=== PATIENT | male | born 1960 | race Caucasian/White ===

== ENCOUNTER 2016-07-27 13:15 | Inpatient (IN) | payer OTHER ==
[~2016-07-27] VITALS: Ht 162.6 cm; Wt 61.4 kg
[2016-07-27] VITALS (7 sets, daily range): BP systolic 111–144; BP diastolic 56–70
[~2016-07-27 13:15] MED LIST: NAPROSYN500 MG OR; NAPROSYN500 MG PO; OMEPRAZOLE40 MG PO; PHENERGAN25 MG/TAB PO; PRILOSEC20 MG OR; PRILOSEC40 MG PO; PROAIR HFA IN; SYMBICORT 160-4.5MCG; SYMBICORT 160-4.5MCG IN; SYMBICORT1 AE1 IN; TESSALON PER100 MG PO; TOPROL XL25 M1 OR; ZITHROMAX250 MG PO; ZITHROMAX500 MG OR
--- NOTE | 2016-07-27 13:26 | NUR ---
IMMEDIATELY TO ER ROOM 10 UPON ARRIVAL. EKG AND DR MAKI SUMMONED TO BEDSIDE
[2016-07-27 13:40] LABS: HEMATOCRIT 51.6 % (39.0-50.0); HEMOGLOBIN 17.5 g/dl (14.0-18.0); IMMATURE GRANULOCYTES 0.5 % (0.0-1.0); MEAN CELL VOLUME 93.5 fL CALC (80.0-100.0); MEAN CORPUSCULAR HGB 31.7 pG CALC (26.0-32.0); MEAN CORPUSCULAR HGB CONC 33.9 g/L CALC (32.0-36.0); NEUT# 9.18 thou/uL (1.82-7.42); RED BLOOD COUNT 5.52 mill/uL (4.70-6.10); RED CELL DISTRI WIDTH 13.3 % (11.5-15.5)
--- NOTE | 2016-07-27 13:43 | NUR ---
DIGOXIN 0.25MG IVP GIEN WITH BP 144/90 AND HR 157.
--- NOTE | 2016-07-27 14:05 | NUR ---
FIRST LITER NS COMPLETE.
--- NOTE | 2016-07-27 14:07 | NUR ---
PT SITTING UP ON STRETCHER. PT STATES HE "FEELS ALOT BETTER". HR DOWN TO 120S. SAO2 =95% ON 2L NC. CRIMINAL JUSTICE INSTRUCTOR SHOWING AFIB. BP 132/82. RR38. CONTINUING TO MONITOR PT.
--- NOTE | 2016-07-27 14:44 | NUR ---
PT RESTING ON STRETCHER. RESP EVEN AND UNLABORED. SAO2 97% ON 2L NC. HR DOWN TO 90-100S. AFIB ON PURCHASING ADMINISTRATIVE ASSISTANT. RR DOWN TO 22. BOTH IV SITES HEALTHY. CARDIAZEM GTT INFUSING AT 15MG/HR. CONTINUING TO MONITOR PT.
[2016-07-27] MEDS ORDERED: LISINOPRIL10 MG PO (15:24)
[2016-07-27] MEDS ORDERED: OMEPRAZOLE10 MG PO (15:26)
[2016-07-27] MEDS ORDERED: SYMBICORT1 AE1 IN (15:26)
[2016-07-27] MEDS ORDERED: PROAIR HFA108 MCG/AC IN (15:30)
[2016-07-27 15:35] LABS: ALBUMIN 4.9 g/dL (3.2-5.0); ALKALINE PHOSPHATASE 114 u/l (38-126); ANION GAP 18 (6-22 (CALC)); BILIRUBIN, TOTAL 0.8 mg/dL (0.0-1.4); BUN 10 mg/dL (9-20); BUN/CREATININE RATIO 9 (12-20 (CALC)); CALCIUM 9.8 mg/dL (8.4-10.2); CARBON DIOXIDE 28 mmol/l (22-30); CHLORIDE 98 mmol/l (95-108); CREATININE 1.2 mg/dL (0.7-1.3); GFR > 60 ML/MIN (>=60 (CALC)); GFR FOR AFR.AMER. > 60 ML/MIN (>=60 (CALC)); GLUCOSE 104 mg/dL (75-110); POTASSIUM 4.7 mmol/l (3.5-5.1); SGOT/AST 38 u/l (17-59); SGPT/ALT 21 u/l (21-72); SODIUM 139 mmol/l (137-146); TOTAL PROTEIN 8.7 g/dL (6.3-8.2)
--- NOTE | 2016-07-27 15:43 | NUR ---
PT RESTING ON STRETCHER. RESP EVEN AND UNLABORED. SAO2 =95% ON 2L NC. SKIN WARM AND DRY. TEMP DOWN TO 99.8. PT A&O X3. HR 90S-100S. AFIB ON SUTURE WINDER HAND. CARDIAZEM INFUSING AT 15MG/HR. BOTH IV SITES HEALTHY. CONTINUING TO MONITOR PT.
[2016-07-27 15:47] LABS: MYOGLOBIN 76 ng/mL (0 - 121)
--- NOTE | 2016-07-27 16:47 | NUR ---
REPORT GIVEN TO BERTRAND TELLEZ
--- NOTE | 2016-07-27 17:00 | NUR ---
600 ML OF URINE OUTPUT IN URINAL
--- NOTE | 2016-07-27 17:30 | NUR ---
PT ADMITTED TO ICU VIA STRETCHER FROM E.R. PT STANDS AND TRANSFERS FROM STRETCHER INTO BED, STOOD AT BEDSIDE REMOVING CLOTHING WITH FAIRLY STEADY GAIT, PT INTO BED AND WEIGHT OBTAINED, PT VERY RED CLIFF, ADMISSION ASSESSMENT COMPLETED, SEE INTERVENTIONS, SKIN WARM DRY AND ITNACT, POST TIB PULSES WITH DOPPLER, BILATERAL FEET WARM WITH GOOD CAP REFILL, CARDIZEM GTT DISCONTINUED IN ER RELATED TO HR 60'S, TELE READING SR WITH PAC'S IN THE 60'S, BP STABLE, PT AFEBRILE, PT HAS IV ACCESS IN 20G R AC AND 18G LEFT AC, NS INFUSING AT KVO IN LEFT AC SITE, LUNGS DIMINSHED AND TIGHT WITH EXPIRATORY WHEEZES, MORE DIMINSHED ON RIGHT ORIENTED TO ROOM AND UNIT, ALL MONITORING EQUIPMENT EXPLAINED PRIOR TO APPLICATION, SAFETY MEASURES INTRODUCED, CALL VELEZ WITHIN REACH, WILL CONTINUE TO MONITOR.
--- NOTE | 2016-07-27 17:30 | NUR ---
Admission Note Report Given to: BERTRAND RN/ROSETTE RN Transported by: Wheelchair X Stretcher Transported with: X Nurse Transporter X Patent IV X O2 X Rn Clinical HR DOWN TO 60S. CARDIAZEM STOPPED. BOTH IV SITES HEALTHY. BELONGINGS UP WITH PT. PT IN STABLE CONDITION.
--- NOTE | 2016-07-27 17:57 | NUR ---
BILATERAL KNEE HI CHER HOSE AND NON SKID SOCKS APPLIED, COMFORT MEASURES PROVIDED, CALL VELEZ WITHIN REACH, WILL CONTINUE TO MONITOR
--- NOTE | 2016-07-27 19:00 | NUR ---
REPORT FROM ROSALINDA DINERO. ASSUMED PT. CARE.
--- NOTE | 2016-07-27 19:30 | NUR ---
PT. RESTING IN BED IN NO DISTRESS. DIMINISHED LUNG SOUNDS THROUGHOUT WITH EXPIRATORY WHEEZES NOTED TO THE UPPERS. VSS. PT. IN NSR WITH RATE IN 60-70'S AT THIS TIME. PT. AWAKE, ALERT, ORIENTED X 3. SKIN WARM AND DRY. AFEBRILE.
--- NOTE | 2016-07-27 19:30 | NUR ---
PT. WASHING UP AT THIS TIME AND ASSISTED BACK TO BED. WITH EXERTION, AND NO OXYGEN, PT. SPO2 DECREASES FROM 96-98% TO 83-85% WITH MILD CASTRO. PT. DENIES COMPLAINTS OF PAIN OR NEED AT THIS TIME. BP STABLE. PLACED BACK ON MONITOR AND REMAINS IN SINUS RHYTHM IN THE 80'S.
--- NOTE | 2016-07-27 21:05 | NUR ---
PT. RESTING IN BED IN NO DISTRESS. RESPS EVEN, SHALLOW, UNLABORED. O2 REMAINS IN PLACE VIA NC AT RATE OF 2L. SPO2 IS 96-98% ON NC. PT. UPDATED ON PLAN OF CARE AND UPCOMING MED ADMINISTRATION. WILL CONTINUE TO REASSESS.
--- NOTE | 2016-07-27 23:00 | NUR ---
PT. RESTING IN BED WITH EYES CLOSED. PT. VOICES NO CONCERNS OR COMPLAINTS AT THIS TIME. VSS. PT. REMAINS IN SINUS RHYTHM IN NO DISTRESS. RESPS EVEN AND UNLABORED. CALL LIGHT WITHIN REACH.
[2016-07-28] VITALS (9 sets, daily range): BP systolic 108–151; BP diastolic 61–78
--- NOTE | 2016-07-28 00:15 | NUR ---
LAB AT BEDSIDE TO DRAW PT. AT THIS TIME. AROUSABLE TO LIGHT VERBAL STIMULI. REMAINS AFEBRILE. DENIES COMPLAINTS OR NEED. WILL CONTINUE TO MONITOR.
--- NOTE | 2016-07-28 02:32 | NUR ---
PT. RESTING IN BED WITH EYES CLOSED. VOICES NO COMPLAINTS OR CONCERNS. PT. REMAINS SINSU SELENE TO SINUS RHYTHM. RESPS EVEN AND UNLABORED. REMAINS AFEBRILE. CALL LIGHT WITHIN REACH.
--- NOTE | 2016-07-28 04:15 | NUR ---
LAB AT BEDSIDE AT THIS TIME. PT. DENIES COMPLAINTS OR NEEDS. APPROX 800 CC CLEAR URINE OUT AT THIS TIME. RESPS REMAINS EVEN, SHALLOW AND UNLABORED. SPO2 STABLE AT 96-97% ON 2L NC. AROUSABLE TO LIGHT VERBAL STIMULI. SKIN WARM AND DRY. AFEBRILE. CALL LIGHT WITHIN REACH.
--- NOTE | 2016-07-28 06:10 | NUR ---
LAB BACK AT BEDSIDE AT THIS TIME FOR REPEAT TROPONIN. PT. STATES HIS WORK OF BREATHING IS MUCH IMPROVED. REMAINS ON 2L NC WITH SPO2 OF 96% AT THIS TIME. REMAINS AFEBRILE. PT. STATES HE FEELS LIKE HE CAN GO HOME NOW.
[2016-07-28 06:22] LABS: HEMATOCRIT 42.3 % (39.0-50.0); HEMOGLOBIN 14.2 g/dl (14.0-18.0); IMMATURE GRANULOCYTES 0.5 % (0.0-1.0); MEAN CELL VOLUME 93.6 fL CALC (80.0-100.0); MEAN CORPUSCULAR HGB 31.4 pG CALC (26.0-32.0); MEAN CORPUSCULAR HGB CONC 33.6 g/L CALC (32.0-36.0); NEUT# 9.74 thou/uL (1.82-7.42); RED BLOOD COUNT 4.52 mill/uL (4.70-6.10); RED CELL DISTRI WIDTH 13.4 % (11.5-15.5)
[2016-07-28 06:42] LABS: ANION GAP 14 (6-22 (CALC)); BUN 16 mg/dL (9-20); BUN/CREATININE RATIO 17 (12-20 (CALC)); CALCIUM 8.9 mg/dL (8.4-10.2); CALCULATED LDLCHOLESTEROL 77 mg/dL (62-129 (CALC)); CARBON DIOXIDE 22 mmol/l (22-30); CHLORIDE 106 mmol/l (95-108); CREATININE 0.9 mg/dL (0.7-1.3); GFR > 60 ML/MIN (>=60 (CALC)); GFR FOR AFR.AMER. > 60 ML/MIN (>=60 (CALC)); GLUCOSE 139 mg/dL (75-110); HDL CHOLESTEROL 38 mg/dL (>=40); SODIUM 138 mmol/l (137-146); TOTAL CHOLESTEROL 124 mg/dl (0-199); TOTAL TRIGLYCERIDES 43 mg/dl (30-149); VLDL CHOLESTROL 9 mg/dl (8-62 (CALC))
--- NOTE | 2016-07-28 08:18 | NUR ---
PATIENT SITTING UP IN BED WATCHING TV AND EATING BREAKFAST. ASSESSMENT COMPLETED AT THIS TIME. RESP EVEN AND UNLABORED. NO S/S OF DISTRESS NOTED. CALL LIGHT IN REACH. ENCOURAGED TO CALL FOR ANY NEEDS.
--- NOTE | 2016-07-28 12:49 | NUR ---
PATIENT IN BED WATCHING TV. RESP EVEN AND UNLABORED. NO S/S OF DISTRESS NOTED. CALL LIGHT IN REACH. ENCOURAGED TO CALL FOR ANY NEEDS. WILL CONTINUE TO MONITOR.
--- NOTE | 2016-07-28 14:00 | NUR ---
FROM ICU VIA WHEELCHAIR ACCOMPANIED BY YAMILKA TRAN. AMBULATED TO BATHROOM WITH UNSTEADY GAIT. RESPS LABORED ON EXERTION, O2 VIA NC. TELE MONITOR APPLIED. ORIENTED TO ROOM AND CALL SYSTEM. SAFETY PRECAUTIONS REINFORCED. BED IN LOWEST POSITION WITH WHEELS LOCKED. CALL LIGHT WITHIN REACH. WILL CONTINUE TO MONITOR.
--- NOTE | 2016-07-28 16:00 | NUR ---
SITTING IN BEDSIDE CHAIR. DENIES ANY NEEDS AT THIS TIME. CALL LIGHT WITHIN REACH. WILL CONTINUE TO MONITOR.
--- NOTE | 2016-07-29 00:13 | NUR ---
PT IS ASLEEP AT THIS TIME. NO SIGNS OF PAIN/DISCOMFORT NOTED. RESPIRATIONS EVEN AND UNLABORED WITH OXYGEN IN PLACE. SAFETY MEASURES IN PLACE. CALL LIGHT WITHIN REACH.
--- NOTE | 2016-07-29 03:56 | NUR ---
PT ASLEEP AT THIS TIME. NO SIGNS OF PAIN OR DISCOMFORT. RESPIRATIONS EVEN AND SHALLOW. SAFETY MEASURES IN PLACE. CALL LIGHT WITHIN REACH.
[2016-07-29 04:07] VITALS: BP 106/67
[2016-07-29 06:23] LABS: HEMATOCRIT 41.7 % (39.0-50.0); IMMATURE GRANULOCYTES 0.9 % (0.0-1.0); MEAN CELL VOLUME 94.6 fL CALC (80.0-100.0); MEAN CORPUSCULAR HGB 31.7 pG CALC (26.0-32.0); MEAN CORPUSCULAR HGB CONC 33.6 g/L CALC (32.0-36.0); NEUT# 14.42 thou/uL (1.82-7.42); RED BLOOD COUNT 4.41 mill/uL (4.70-6.10); RED CELL DISTRI WIDTH 13.5 % (11.5-15.5)
[2016-07-29 06:31] LABS: ANION GAP 14 (6-22 (CALC)); BUN 19 mg/dL (9-20); BUN/CREATININE RATIO 20 (12-20 (CALC)); CALCIUM 9.4 mg/dL (8.4-10.2); CARBON DIOXIDE 24 mmol/l (22-30); CHLORIDE 103 mmol/l (95-108); GFR > 60 ML/MIN (>=60 (CALC)); GFR FOR AFR.AMER. > 60 ML/MIN (>=60 (CALC)); GLUCOSE 141 mg/dL (75-110); POTASSIUM 4.2 mmol/l (3.5-5.1); SODIUM 137 mmol/l (137-146)
--- NOTE | 2016-07-29 07:00 | NUR ---
RECEIVED BEDSIDE REPORT FROM CINDI TRAN. RESTING IN BED WITH EYES CLOSED, AWAKENS EASILY. RESPS EVEN AND UNLABORED ON O2 VIA NC, TELE MONITOR IN PLACE. DENIES PAIN OR DISCOMFORT. PLAN OF CARE DISCUSSED. SAFETY PRECAUTIONS REINFORCED. BED IN LOWEST POSITION WITH WHEELS LOCKED. CALL LIGHT WITHIN REACH. ENCOURAGED PT TO CALL FOR ANY NEEDS.
[2016-07-29 08:26] VITALS: BP 120/67
[2016-07-29 11:17] VITALS: BP 125/59
[2016-07-29] MEDS ORDERED: NICOTINE T21 MG/PATC TD (11:42)
[2016-07-29] MEDS ORDERED: IPRATROPIU0.5 MG/3 M IN (11:42)
[2016-07-29] MEDS ORDERED: XARELTO10 MG PO (11:42)
[2016-07-29] MEDS ORDERED: CARDIZEM CD120 M1 PO (11:42)
[2016-07-29] MEDS ORDERED: PREDNISONE20 MG PO (11:44)
[2016-07-29] MEDS ORDERED: LEVAQUIN750 MG PO (14:04)
[2016-07-29] MEDS ORDERED: LISINOPRIL10 MG PO (14:09)
--- NOTE | 2016-07-29 15:01 | NUR ---
Discharge instructions given. Patient verbalizes understanding of same. Discharged in stable condition via Wheelchair to Home with spouse. All belongings sent with pt.
== END 2016-07-29 15:02 | disposition home or self-care (01) | DRG 189 ==
LOC: ENPENDDIS → ED 13:15 → ED-I 16:10 → ED 16:12 → ICU 16:13 → MS2 07-28 13:57
PROVIDERS: Emergency Medicine; ADMIT Internal Medicine; ATTEND Internal Medicine
PROC: 3E0234Z Introduction of Serum, Toxoid and Vaccine into Muscle, Percutaneous Approach (ICD-10-PCS; principal; 2016-07-29)
DX: J96.01 Acute respiratory failure with hypoxia (principal); I48.92 Unspecified atrial flutter; I10 Essential (primary) hypertension; J44.1 Chronic obstructive pulmonary disease with (acute) exacerbation; I48.91 Unspecified atrial fibrillation; J45.909 Unspecified asthma, uncomplicated; K21.9 Gastro-esophageal reflux disease without esophagitis; F12.90 Cannabis use, unspecified, uncomplicated; F17.210 Nicotine dependence, cigarettes, uncomplicated; H91.90 Unspecified hearing loss, unspecified ear; Z23 Encounter for immunization
CPT/HCPCS: J0282; J1160; J1650

== ENCOUNTER 2016-11-12 10:14 | Emergency (ER) | payer OTHER ==
[~2016-11-12] VITALS: Ht 162.6 cm; Wt 70.0 kg
[~2016-11-12 10:14] MED LIST changes: +CARDIZEM CD120 M1 PO; +IPRATROPIU0.5 MG/3 M IN; +LEVAQUIN750 MG PO; +LISINOPRIL10 MG PO; +NICOTINE T21 MG/PATC TD; +OMEPRAZOLE10 MG PO; +PREDNISONE20 MG PO; +PROAIR HFA108 MCG/AC IN; +XARELTO10 MG PO
[2016-11-12] MEDS ORDERED: DILTIAZEM240 MG PO (10:52)
[2016-11-12] MEDS ORDERED: CARVEDILOL3.125 MG PO (10:52)
[2016-11-12] MEDS ORDERED: CILOSTAZOL100 MG PO (10:52)
[2016-11-12 11:34] LABS: HEMATOCRIT 38.1 % (39.0-50.0); IMMATURE GRANULOCYTES 1.3 % (0.0-1.0); MEAN CELL VOLUME 90.5 fL CALC (80.0-100.0); MEAN CORPUSCULAR HGB 30.9 pG CALC (26.0-32.0); MEAN CORPUSCULAR HGB CONC 34.1 g/L CALC (32.0-36.0); NEUT# 5.44 thou/uL (1.82-7.42); RED BLOOD COUNT 4.21 mill/uL (4.70-6.10); RED CELL DISTRI WIDTH 13.7 % (11.5-15.5)
[2016-11-12 11:50] LABS: ALBUMIN 4.1 g/dL (3.2-5.0); ALKALINE PHOSPHATASE 89 u/l (38-126); ANION GAP 15 (6-22 (CALC)); BILIRUBIN, TOTAL 0.3 mg/dL (0.0-1.4); BUN 14 mg/dL (9-20); BUN/CREATININE RATIO 16 (12-20 (CALC)); CALCIUM 8.9 mg/dL (8.4-10.2); CARBON DIOXIDE 22 mmol/l (22-30); CHLORIDE 106 mmol/l (95-108); CREATININE 0.9 mg/dL (0.7-1.3); GFR > 60 ML/MIN (>=60 (CALC)); GFR FOR AFR.AMER. > 60 ML/MIN (>=60 (CALC)); GLUCOSE 97 mg/dL (75-110); POTASSIUM 3.9 mmol/l (3.5-5.1); SGOT/AST 13 u/l (17-59); SGPT/ALT 24 u/l (21-72); SODIUM 139 mmol/l (137-146); TOTAL PROTEIN 6.7 g/dL (6.3-8.2)
[2016-11-12 12:25] VITALS: BP 145/76
== END 2016-11-12 12:42 | disposition home or self-care (01) | DRG 305 ==
LOC: ED 10:14
PROVIDERS: Emergency Medicine
DX: I10 Essential (primary) hypertension (principal)

== ENCOUNTER 2017-03-27 11:50 | Emergency (ER) | payer OTHER ==
[~2017-03-27] VITALS: Ht 162.6 cm; Wt 70.0 kg
[~2017-03-27 11:50] MED LIST changes: +CARVEDILOL3.125 MG PO; +CILOSTAZOL100 MG PO; +DILTIAZEM240 MG PO
[2017-03-27 12:42] LABS: HEMATOCRIT 48.4 % (39.0-50.0); HEMOGLOBIN 16.3 g/dl (14.0-18.0); IMMATURE GRANULOCYTES 1.7 % (0.0-1.0); MEAN CELL VOLUME 88.8 fL CALC (80.0-100.0); MEAN CORPUSCULAR HGB 29.9 pG CALC (26.0-32.0); MEAN CORPUSCULAR HGB CONC 33.7 g/L CALC (32.0-36.0); NEUT# 15.25 thou/uL (1.82-7.42); RED BLOOD COUNT 5.45 mill/uL (4.70-6.10); RED CELL DISTRI WIDTH 13.9 % (11.5-15.5)
[2017-03-27 12:59] LABS: ALBUMIN 5.2 g/dL (3.2-5.0); ALKALINE PHOSPHATASE 155 u/l (38-126); AMYLASE 75 u/l (30-110); ANION GAP 21 (6-22 (CALC)); BILIRUBIN, TOTAL 0.8 mg/dL (0.0-1.4); BUN 16 mg/dL (9-20); BUN/CREATININE RATIO 11 (12-20 (CALC)); CALCIUM 10.4 mg/dL (8.4-10.2); CARBON DIOXIDE 18 mmol/l (22-30); CHLORIDE 111 mmol/l (95-108); CREATININE 1.4 mg/dL (0.7-1.3); GFR 52 ML/MIN (>=60 (CALC)); GFR FOR AFR.AMER. > 60 ML/MIN (>=60 (CALC)); GLUCOSE 154 mg/dL (75-110); LIPASE 59 u/l (23-300); POTASSIUM 4.3 mmol/l (3.5-5.1); SGOT/AST 17 u/l (17-59); SGPT/ALT 16 u/l (21-72); SODIUM 145 mmol/l (137-146); TOTAL PROTEIN 9.2 g/dL (6.3-8.2)
[2017-03-27 13:11] LABS: MYOGLOBIN 109 ng/mL (0 - 121)
[2017-03-27 14:08] LABS: URINE BLOOD DIPSTICK NEGATIVE (NEGATIVE); URINE GLUCOSE - DIPSTICK NEGATIVE (NEGATIVE); URINE LEUK ESTERASE NEGATIVE (NEGATIVE); URINE NITRITE - DIPSTICK NEGATIVE (Negative); URINE UROBILINOGEN - DIPSTICK 0.2 E.U./dL (0.2)
[2017-03-27 14:32] LABS: URINE COLOR DK. YELLOW
[2017-03-27 14:33] LABS: URINE BILIRUBIN - DIPSTICK SMALL (NEGATIVE); URINE CLARITY SL CLOUDY; URINE KETONE TRACE mg/dL (NEGATIVE); URINE PH 5.5 (4.5-8.0); URINE SPECIFIC GRAVITY >=1.030
[2017-03-27 14:34] LABS: URINE EPITHELIAL CELLS MODERATE EPI/hpf (0-FEW); URINE MUCUS MODERATE hpf (NONE-FEW); URINE PROTEIN - DIPSTICK 100 mg/dL (NEG-TRACE)
[2017-03-27] MEDS ORDERED: IMODIUM2 MG PO (15:51)
[2017-03-27] MEDS ORDERED: ZOFRAN ODT4 MG PO (15:51)
[2017-03-27 15:56] VITALS: BP 141/79
== END 2017-03-27 16:00 | disposition home or self-care (01) | DRG 392 ==
LOC: ED 11:50
PROVIDERS: Emergency Medicine
DX: R11.10 Vomiting, unspecified (principal); R19.7 Diarrhea, unspecified; R10.84 Generalized abdominal pain; J98.4 Other disorders of lung; I10 Essential (primary) hypertension; R07.9 Chest pain, unspecified; I51.9 Heart disease, unspecified

== ENCOUNTER 2020-03-04 14:07 | Emergency (ER) | payer OTHER ==
[~2020-03-04] VITALS: Ht 162.6 cm; Wt 75.0 kg
[~2020-03-04 14:07] MED LIST changes: +IMODIUM2 MG PO; +ZOFRAN ODT4 MG PO
[2020-03-04] MEDS ORDERED: LIPITOR20 M1 PO (14:24)
[2020-03-04] MEDS ORDERED: CILOSTAZOL100 MG PO (14:24)
[2020-03-04] MEDS ORDERED: LISINOPRIL5 MG PO (14:25)
[2020-03-04] MEDS ORDERED: XARELTO10 MG PO (14:25)
[2020-03-04] MEDS ORDERED: CARVEDILOL6.25 MG PO (14:25)
[2020-03-04 14:41] LABS: IMMATURE GRANULOCYTES 3.1 % (0.0-5.0); MEAN CORPUSCULAR HGB CONC 30.6 g/dL CAL (32.0-36.0); RED BLOOD COUNT 4.62 mill/uL (4.70-6.10); RED CELL DISTRI WIDTH 18.7 % (11.5-15.5)
[2020-03-04 14:49] LABS: HEMATOCRIT 36.3 % (39.0-50.0); HEMOGLOBIN 11.1 g/dl (14.0-18.0); MEAN CELL VOLUME 78.6 fL CALC (80.0-100.0); PLATELET COUNT 837 thou/uL (130-400)
[2020-03-04 14:59] LABS: ALKALINE PHOSPHATASE 119 u/l (38-126); BILIRUBIN, TOTAL 0.7 mg/dL (0.0-1.4); BUN 21 mg/dL (8-23); BUN/CREATININE RATIO 25 (12-20 (CALC)); CARBON DIOXIDE 21 mmol/l (22-30); CHLORIDE 102 mmol/l (95-108); CREATININE 0.8 mg/dL (0.7-1.3); GFR > 60 ML/MIN (>=60 (CALC)); GFR FOR AFR.AMER. > 60 ML/MIN (>=60 (CALC)); POTASSIUM 4.8 mmol/l (3.5-5.1); SGOT/AST 25 u/l (19-48); TOTAL PROTEIN 7.5 g/dL (6.3-8.2)
[2020-03-04 15:02] LABS: BAND 5 % (0-8); MANUAL DIFFERENTIAL YES
[2020-03-04 15:06] LABS: ALBUMIN 3.1 g/dL (3.2-5.0); ANION GAP 16 (6-22 (CALC)); SODIUM 134 mmol/l (137-146)
[2020-03-04 17:18] LABS: C-REACTIVE PROTEIN > 27.0 mg/dL (0-0.9)
[2020-03-04 18:05] VITALS: BP 111/64
--- NOTE | 2020-03-06 08:46 | NUR ---
PRELIM BLOOD CX SHOW GRAM POSITIVE COCCI IN 1 SET. RESULTS CALLED TO [place] AT [facility] [address] AND FAXED TO [phone]. WILL F/U WITH FINAL
--- NOTE | 2020-03-08 07:45 | NUR ---
FINAL BLOOD CX RESULTS FAXED TO [facility] M[facility] NURSE TAI [phone]
== END 2020-03-04 18:05 | disposition short-term general hospital (02) ==
LOC: ED 14:07
PROVIDERS: Family Medicine
DX: J93.9 Pneumothorax, unspecified (principal); J18.9 Pneumonia, unspecified organism; J91.8 Pleural effusion in other conditions classified elsewhere; J44.0 Chronic obstructive pulmonary disease with (acute) lower respiratory infection; I10 Essential (primary) hypertension; Z99.81 Dependence on supplemental oxygen; Z20.828 Contact with and (suspected) exposure to other viral communicable diseases
CPT/HCPCS: Q9967

== ENCOUNTER 2023-04-11 12:11 | Inpatient (IN) | payer OTHER ==
[~2023-04-11] VITALS: Ht 162.6 cm; Wt 83.8 kg
[~2023-04-11 12:11] MED LIST changes: +CARVEDILOL6.25 MG PO; +LIPITOR20 M1 PO; +LISINOPRIL5 MG PO
[2023-04-11 12:42] LABS: BASO% 0.8 % (0-3); EOS% 1.8 % (0-8); HEMATOCRIT 36.6 % (39.0-50.0); HEMOGLOBIN 11.2 g/dl (14.0-18.0); IMMATURE GRANULOCYTES 0.8 % (0.0-5.0); LYMPH% 20.7 % (15-41); MEAN CELL VOLUME 82.6 fL CALC (80.0-100.0); MEAN CORPUSCULAR HGB 25.3 pG CALC (26.0-32.0); MEAN CORPUSCULAR HGB CONC 30.6 g/dL CAL (32.0-36.0); MONO% 14.5 % (2-13); NEUT# 4.83 thou/uL (1.82-7.42); NEUT% 61.4 % (42-76); RED BLOOD COUNT 4.43 mill/uL (4.70-6.10); RED CELL DISTRI WIDTH 17.5 % (11.5-15.5)
[2023-04-11 13:03] LABS: ALBUMIN 3.6 g/dL (3.2-5.0); ALKALINE PHOSPHATASE 160 u/l (38-126); ANION GAP 13 (6-22 (CALC)); BUN 24 mg/dL (8-23); BUN/CREATININE RATIO 23 (12-20 (CALC)); CARBON DIOXIDE 22 mmol/l (22-30); CHLORIDE 109 mmol/l (95-108); CREATININE 1.1 mg/dL (0.7-1.3); GFR FOR AFR.AMER. > 60 ML/MIN (>=60 (CALC)); GFR OTHER RACES > 60 ML/MIN (>=60 (CALC)); POTASSIUM 4.3 mmol/l (3.5-5.1); SODIUM 139 mmol/l (137-146); TOTAL PROTEIN 6.4 g/dL (6.3-8.2)
[2023-04-11 13:08] LABS: SGOT/AST 130 u/l (19-48)
[2023-04-11] MEDS ORDERED: FAMOTIDINE20 M1 PO (17:20)
[2023-04-11] MEDS ORDERED: LISINOPRIL10 MG PO (17:22)
[2023-04-11] MEDS ORDERED: CARVEDILOL3.125 MG PO (17:22)
[2023-04-11] MEDS ORDERED: ELIQUIS5 MG PO (17:23)
[2023-04-11] MEDS ORDERED: ATORVASTATIN CA20 MG PO (17:23)
[2023-04-11] MEDS ORDERED: DILTIAZEM HYDR180 MG PO (17:25)
[2023-04-11] MEDS ORDERED: ADVAIR DISK1 IN (17:26)
[2023-04-11] MEDS ORDERED: VENTOLIN HFA108 MCG IN (17:28)
[2023-04-11 22:02] VITALS: BP 112/81
[2023-04-11 22:13] LABS: URINE BILIRUBIN - DIPSTICK Negative (NEGATIVE); URINE BLOOD DIPSTICK Trace-lysed (NEGATIVE); URINE GLUCOSE - DIPSTICK Negative (NEGATIVE); URINE KETONE Negative (NEGATIVE); URINE LEUK ESTERASE Negative (NEGATIVE); URINE NITRITE - DIPSTICK Negative (Negative); URINE PROTEIN - DIPSTICK 30 mg/dL (NEG-TRACE); URINE SPECIFIC GRAVITY 1.025; URINE UROBILINOGEN - DIPSTICK 0.2 E.U./dL (0.2)
[2023-04-11 22:14] LABS: URINE COLOR Yellow; URINE RBC 0-2 RBC/hpf (0-5); URINE SQUAMOUS EPITHELIAL CELL RARE EPI/hpf (0-FEW); URINE WBC 0-2 WBC/hpf (0-5)
[2023-04-11 22:20] VITALS: BP 135/89
[2023-04-11 22:41] VITALS: BP 93/73
[2023-04-11 23:00] VITALS: BP 141/90
[2023-04-11 23:21] VITALS: BP 119/73
[2023-04-11 23:40] VITALS: BP 131/77
[2023-04-12] VITALS (156 sets, daily range): BP systolic 34–153; BP diastolic 18–121
[2023-04-12 07:32] LABS: BASO% 0.4 % (0-3); HEMATOCRIT 36.5 % (39.0-50.0); HEMOGLOBIN 11.2 g/dl (14.0-18.0); LYMPH% 11.6 % (15-41); MEAN CELL VOLUME 83.7 fL CALC (80.0-100.0); MEAN CORPUSCULAR HGB 25.7 pG CALC (26.0-32.0); MEAN CORPUSCULAR HGB CONC 30.7 g/dL CAL (32.0-36.0); MONO% 3.6 % (2-13); NEUT# 4.38 thou/uL (1.82-7.42); NEUT% 83.4 % (42-76); RED BLOOD COUNT 4.36 mill/uL (4.70-6.10); RED CELL DISTRI WIDTH 17.6 % (11.5-15.5)
[2023-04-12 07:43] LABS: ALBUMIN 3.4 g/dL (3.2-5.0); ALKALINE PHOSPHATASE 153 u/l (38-126); BILIRUBIN, TOTAL 0.7 mg/dL (0.2-1.3); BUN 22 mg/dL (8-23); BUN/CREATININE RATIO 25 (12-20 (CALC)); CALCULATED LDLCHOLESTEROL 29 mg/dL (62-129 (CALC)); CHLORIDE 108 mmol/l (95-108); CHOLESTEROL HDL RATIO 2.9 (<4.4 (CALC)); CREATININE 0.9 mg/dL (0.7-1.3); GFR FOR AFR.AMER. > 60 ML/MIN (>=60 (CALC)); GFR OTHER RACES > 60 ML/MIN (>=60 (CALC)); HDL CHOLESTEROL 20 mg/dL (39.0-59.0); MAGNESIUM 1.9 mg/dL (1.6-2.3); POTASSIUM 4.5 mmol/l (3.5-5.1); SGOT/AST 169 u/l (19-48); SODIUM 138 mmol/l (137-146); TOTAL TRIGLYCERIDES 38 mg/dl (0-149); VLDL CHOLESTROL 8 mg/dl (4-45 (CALC))
[2023-04-12 07:47] LABS: ANION GAP 18 (6-22 (CALC)); CARBON DIOXIDE 17 mmol/l (22-30); TOTAL CHOLESTEROL 57 mg/dl (0-199)
[2023-04-12 19:29] LABS: HEMOGLOBIN 10.3 g/dl (14.0-18.0); MEAN CELL VOLUME 88.2 fL CALC (80.0-100.0); MEAN CORPUSCULAR HGB 25.9 pG CALC (26.0-32.0); MEAN CORPUSCULAR HGB CONC 29.4 g/dL CAL (32.0-36.0); RED BLOOD COUNT 3.97 mill/uL (4.70-6.10); RED CELL DISTRI WIDTH 17.8 % (11.5-15.5)
[2023-04-12 19:42] LABS: CREATININE 1.6 mg/dL (0.7-1.3); MAGNESIUM 2.1 mg/dL (1.6-2.3); TOTAL PROTEIN 5.4 g/dL (6.3-8.2)
[2023-04-12 19:58] LABS: POTASSIUM 6.8 mmol/l (3.5-5.1)
[2023-04-13] VITALS (147 sets, daily range): BP systolic 100–156; BP diastolic 61–133
[2023-04-13 06:37] LABS: BASO% 0.1 % (0-3); HEMATOCRIT 29.7 % (39.0-50.0); HEMOGLOBIN 9.2 g/dl (14.0-18.0); IMMATURE GRANULOCYTES 0.4 % (0.0-5.0); LYMPH% 2.9 % (15-41); MEAN CELL VOLUME 84.1 fL CALC (80.0-100.0); MEAN CORPUSCULAR HGB 26.1 pG CALC (26.0-32.0); MONO% 6.3 % (2-13); NEUT# 15.1 thou/uL (1.82-7.42); NEUT% 90.3 % (42-76); RED BLOOD COUNT 3.53 mill/uL (4.70-6.10); RED CELL DISTRI WIDTH 17.6 % (11.5-15.5)
[2023-04-13 07:09] LABS: ALBUMIN 2.5 g/dL (3.2-5.0); BILIRUBIN, TOTAL 0.9 mg/dL (0.2-1.3); CREATININE 1.7 mg/dL (0.7-1.3); MAGNESIUM 1.9 mg/dL (1.6-2.3); TOTAL PROTEIN 4.8 g/dL (6.3-8.2)
[2023-04-13 07:27] LABS: POTASSIUM 4.4 mmol/l (3.5-5.1)
[2023-04-13 09:19] LABS: HEMATOCRIT 30.9 % (39.0-50.0); HEMOGLOBIN 9.5 g/dl (14.0-18.0); MEAN CELL VOLUME 82.8 fL CALC (80.0-100.0); MEAN CORPUSCULAR HGB 25.5 pG CALC (26.0-32.0); MEAN CORPUSCULAR HGB CONC 30.7 g/dL CAL (32.0-36.0); RED BLOOD COUNT 3.73 mill/uL (4.70-6.10); RED CELL DISTRI WIDTH 17.5 % (11.5-15.5)
[2023-04-13 09:40] LABS: ALBUMIN 2.7 g/dL (3.2-5.0); ALKALINE PHOSPHATASE 125 u/l (38-126); ANION GAP 10 (6-22 (CALC)); BUN 33 mg/dL (8-23); BUN/CREATININE RATIO 19 (12-20 (CALC)); CARBON DIOXIDE 25 mmol/l (22-30); CHLORIDE 103 mmol/l (95-108); CREATININE 1.7 mg/dL (0.7-1.3); GFR FOR AFR.AMER. 49 ML/MIN (>=60 (CALC)); GFR OTHER RACES 41 ML/MIN (>=60 (CALC)); POTASSIUM 4.6 mmol/l (3.5-5.1); SODIUM 133 mmol/l (137-146); TOTAL PROTEIN 5.2 g/dL (6.3-8.2)
[2023-04-13 10:23] LABS: CPK > 3200 u/l (55-170); SGOT/AST 5869 u/l (19-48)
[2023-04-13 15:14] LABS: CREATININE 1.5 mg/dL (0.7-1.3); POTASSIUM 4.2 mmol/l (3.5-5.1)
[2023-04-14] VITALS (96 sets, daily range): BP systolic 72–214; BP diastolic 49–102
[2023-04-14 00:51] LABS: CREATININE 1.5 mg/dL (0.7-1.3); POTASSIUM 3.9 mmol/l (3.5-5.1)
[2023-04-14 04:34] LABS: BASO% 0.2 % (0-3); HEMATOCRIT 28.9 % (39.0-50.0); HEMOGLOBIN 9.3 g/dl (14.0-18.0); IMMATURE GRANULOCYTES 0.5 % (0.0-5.0); LYMPH% 5.7 % (15-41); MEAN CORPUSCULAR HGB 26.1 pG CALC (26.0-32.0); MEAN CORPUSCULAR HGB CONC 32.2 g/dL CAL (32.0-36.0); MONO% 4.4 % (2-13); NEUT# 11.71 thou/uL (1.82-7.42); NEUT% 89.2 % (42-76); RED BLOOD COUNT 3.57 mill/uL (4.70-6.10); RED CELL DISTRI WIDTH 17.3 % (11.5-15.5)
[2023-04-14 04:55] LABS: ALBUMIN 2.4 g/dL (3.2-5.0); BILIRUBIN, TOTAL 1.2 mg/dL (0.2-1.3); CREATININE 1.5 mg/dL (0.7-1.3); MAGNESIUM 1.9 mg/dL (1.6-2.3); TOTAL PROTEIN 4.7 g/dL (6.3-8.2)
[2023-04-15] VITALS (144 sets, daily range): BP systolic 52–131; BP diastolic 19–117
[2023-04-15 04:25] LABS: BASO% 0.2 % (0-3); IMMATURE GRANULOCYTES 0.4 % (0.0-5.0); LYMPH% 6.1 % (15-41); MEAN CELL VOLUME 82.9 fL CALC (80.0-100.0); MEAN CORPUSCULAR HGB 25.4 pG CALC (26.0-32.0); MEAN CORPUSCULAR HGB CONC 30.6 g/dL CAL (32.0-36.0); MONO% 4.4 % (2-13); NEUT# 15.99 thou/uL (1.82-7.42); NEUT% 88.9 % (42-76); RED BLOOD COUNT 4.33 mill/uL (4.70-6.10); RED CELL DISTRI WIDTH 17.5 % (11.5-15.5)
[2023-04-15 04:26] LABS: HEMATOCRIT 35.9 % (39.0-50.0)
[2023-04-15 04:42] LABS: ALBUMIN 2.7 g/dL (3.2-5.0); CREATININE 1.7 mg/dL (0.7-1.3); POTASSIUM 4.6 mmol/l (3.5-5.1); TOTAL PROTEIN 5.2 g/dL (6.3-8.2)
[2023-04-15 05:25] LABS: BILIRUBIN, TOTAL 1.7 mg/dL (0.2-1.3)
[2023-04-16] VITALS (13 sets, daily range): BP systolic 88–119; BP diastolic 66–93
[2023-04-16 06:08] LABS: BASO% 0.1 % (0-3); HEMATOCRIT 33.6 % (39.0-50.0); HEMOGLOBIN 10.1 g/dl (14.0-18.0); IMMATURE GRANULOCYTES 0.4 % (0.0-5.0); MEAN CELL VOLUME 83.4 fL CALC (80.0-100.0); MEAN CORPUSCULAR HGB 25.1 pG CALC (26.0-32.0); MEAN CORPUSCULAR HGB CONC 30.1 g/dL CAL (32.0-36.0); MONO% 7.3 % (2-13); NEUT# 14.7 thou/uL (1.82-7.42); NEUT% 85.2 % (42-76); RED BLOOD COUNT 4.03 mill/uL (4.70-6.10); RED CELL DISTRI WIDTH 17.8 % (11.5-15.5)
[2023-04-16 06:26] LABS: ALBUMIN 2.4 g/dL (3.2-5.0); BILIRUBIN, TOTAL 1.6 mg/dL (0.2-1.3); CREATININE 1.5 mg/dL (0.7-1.3); MAGNESIUM 2.3 mg/dL (1.6-2.3); POTASSIUM 4.7 mmol/l (3.5-5.1); TOTAL PROTEIN 4.7 g/dL (6.3-8.2)
== END 2023-04-16 13:57 | disposition left against medical advice (07) | DRG 871 ==
LOC: ED 12:11 → ED-I 16:00 → ED 18:16 → ICU 18:17
PROVIDERS: Family Medicine; ADMIT Student in an Organized Health Care Education/Training Program; ATTEND Student in an Organized Health Care Education/Training Program
PROC: 06HY33Z Insertion of Infusion Device into Lower Vein, Percutaneous Approach (ICD-10-PCS; principal; 2023-04-12)
PROC: 0T9B70Z Drainage of Bladder with Drainage Device, Via Natural or Artificial Opening (ICD-10-PCS; 2023-04-12)
PROC: 5A09357 Assistance with Respiratory Ventilation, Less than 24 Consecutive Hours, Continuous Positive Airway Pressure (ICD-10-PCS; 2023-04-12)
PROC: 3E043XZ Introduction of Vasopressor into Central Vein, Percutaneous Approach (ICD-10-PCS; 2023-04-12)
DX: A41.9 Sepsis, unspecified organism (principal); J18.9 Pneumonia, unspecified organism; K72.00 Acute and subacute hepatic failure without coma; N17.9 Acute kidney failure, unspecified; J44.1 Chronic obstructive pulmonary disease with (acute) exacerbation; E87.20 Acidosis, unspecified; J44.0 Chronic obstructive pulmonary disease with (acute) lower respiratory infection; E87.1 Hypo-osmolality and hyponatremia; I95.9 Hypotension, unspecified; R65.20 Severe sepsis without septic shock; E86.9 Volume depletion, unspecified; E87.5 Hyperkalemia; I10 Essential (primary) hypertension; I48.91 Unspecified atrial fibrillation; R33.9 Retention of urine, unspecified; K57.30 Diverticulosis of large intestine without perforation or abscess without bleeding; H91.90 Unspecified hearing loss, unspecified ear; K21.9 Gastro-esophageal reflux disease without esophagitis; F17.200 Nicotine dependence, unspecified, uncomplicated; Z79.01 Long term (current) use of anticoagulants; Z20.822 Contact with and (suspected) exposure to COVID-19
CPT/HCPCS: J1650; Q9967; S0164

== ENCOUNTER 2023-04-26 14:11 | Inpatient (IN) | payer OTHER ==
[2023-04-26] VITALS (17 sets, daily range): BP systolic 91–127; BP diastolic 51–89
[~2023-04-26] VITALS: Ht 162.6 cm; Wt 81.4 kg
[~2023-04-26 14:11] MED LIST changes: +ADVAIR DISK1 IN; +ATORVASTATIN CA20 MG PO; +DILTIAZEM HYDR180 MG PO; +ELIQUIS5 MG PO; +FAMOTIDINE20 M1 PO; +VENTOLIN HFA108 MCG IN
--- NOTE | 2023-04-26 14:11 | NUR ---
PATIENT ARRIVED TO ER VIA POV. PATIENT WHEELED TO ROOM BY ER STAFF. PATIENT AWAKE, ALERT AND STABLE. NO DISTRESS NOTED. PATIENT IS VERY [place]. PHYSICIAN NOTIFIED.
--- NOTE | 2023-04-26 16:00 | NUR ---
PATIENT AWAKE, ALERT AND STABLE. NO DISTRESSS NOTED. PATIENT FAMILY AT BEDSIDE. PATIENT LEGS CLEANED.
[2023-04-26 16:10] LABS: BASO% 0.4 % (0-3); EOS% 0.7 % (0-8); HEMATOCRIT 36.6 % (39.0-50.0); HEMOGLOBIN 11.2 g/dl (14.0-18.0); IMMATURE GRANULOCYTES 0.9 % (0.0-5.0); LYMPH% 8.6 % (15-41); MEAN CELL VOLUME 83.2 fL CALC (80.0-100.0); MEAN CORPUSCULAR HGB 25.5 pG CALC (26.0-32.0); MEAN CORPUSCULAR HGB CONC 30.6 g/dL CAL (32.0-36.0); MONO% 12.9 % (2-13); NEUT# 10.69 thou/uL (1.82-7.42); NEUT% 76.5 % (42-76); RED BLOOD COUNT 4.4 mill/uL (4.70-6.10); RED CELL DISTRI WIDTH 20.3 % (11.5-15.5)
[2023-04-26 16:20] LABS: URINE BLOOD DIPSTICK Large (NEGATIVE); URINE GLUCOSE - DIPSTICK Negative (NEGATIVE); URINE KETONE Negative (NEGATIVE); URINE NITRITE - DIPSTICK Negative (Negative); URINE PH 6.5 (4.5-8.0); URINE PROTEIN - DIPSTICK 30 mg/dL (NEG-TRACE)
[2023-04-26 16:21] LABS: URINE COLOR Yellow; URINE LEUK ESTERASE Large (NEGATIVE)
[2023-04-26 16:30] LABS: ANION GAP 12 (6-22 (CALC)); BILIRUBIN, TOTAL 1.1 mg/dL (0.2-1.3); C-REACTIVE PROTEIN 3.2 mg/dL (0-0.9); CARBON DIOXIDE 24 mmol/l (22-30); CHLORIDE 104 mmol/l (95-108); GFR FOR AFR.AMER. > 60 ML/MIN (>=60 (CALC)); GFR OTHER RACES > 60 ML/MIN (>=60 (CALC)); SODIUM 136 mmol/l (137-146)
[2023-04-26 16:36] LABS: ALBUMIN 3.4 g/dL (3.2-5.0); ALKALINE PHOSPHATASE 245 u/l (38-126); BUN 20 mg/dL (8-23); BUN/CREATININE RATIO 20 (12-20 (CALC)); SGOT/AST 75 u/l (19-48); TOTAL PROTEIN 6.2 g/dL (6.3-8.2)
[2023-04-26 16:42] LABS: URINE WBC 20-50 WBC/hpf (0-5)
[2023-04-26 16:43] LABS: URINE YEAST MANY hpf
--- NOTE | 2023-04-26 17:10 | NUR ---
PATIENT AWAKE, ALERT AND STABLE. NO DISTRESS NOTED. PATIENT DENIES ANY PAIN CURRENTLY. PATIENT RESTING IN BED.
--- NOTE | 2023-04-26 18:19 | NUR ---
1700ML OF PINK/LIGHT BROWN URINE DRAINED FROM NAVARRO CATHETER.
--- NOTE | 2023-04-26 18:59 | NUR ---
REPORT RECEIVED FROM TE TELLEZ AND CARE RESUMED BY THIS NURSE AT THIS TIME. CALL LIGHT WITHIN REACH AND PT AWAITING RESULTS.
--- NOTE | 2023-04-26 19:45 | NUR ---
PT SITTING IN RM AWAITING RESULTS AT THIS TIME. CALL LIGHT WITHIN REACH AND PT HAS NO NEEDS OR CONCERNS AT THIS TIME.
--- NOTE | 2023-04-26 20:48 | NUR ---
PT RESTING IN RM AWAITING ADMISSION AT THIS TIME TO THE FLOOR. CALL LIGHT WITHIN REACH AND PT HAS NO NEEDS OR CONCERNS.
--- NOTE | 2023-04-26 21:37 | NUR ---
PT RESTING IN RM AWAITING ADMISSION AT THIS TIME TO THE FLOOR. CALL LIGHT WITHIN REACH AND PT HAS NO NEEDS OR CONCERNS.
--- NOTE | 2023-04-26 22:30 | NUR ---
REPORT GIVEN TO ROSETTE RN IN ICU AND PT AWAITING TRANSPORT TO ICU BED 4. CALL LIGHT WITHIN REACH.
--- NOTE | 2023-04-26 22:51 | NUR ---
Admission Note Report Given to: ROSETTE TELLEZ Transported by: Wheelchair X Stretcher Transported with: Nurse X Transporter X Patent IV O2 X Branch Lending Manager Location: X ICU MS2
--- NOTE | 2023-04-26 22:52 | NUR ---
PT TRANSPORTED TO ICU VIA STRETCHER IN STABLE CONDITION
--- NOTE | 2023-04-26 23:05 | NUR ---
PT ADMITTED TO ICU MED SURG OVERFLOW; MONITORING EQUIPMENT SHOWS PT IN AFIB WITH RVR RATE 115-140; NOTIFIED AND NEW ORDERS REC'D; PT CONVERTED TO ICU PATIENT; ADMISSION ASSESSMENT COMPLETED; SEE INTERVENTIONS; B/P SOFT BUT MAP 65 OR BETTER; PT STATES THAT HE LEFT RECENTLY AGAINST MEDICAL ADVICE AND THAT IT WAS A STUPID MISTAKE; STATES THAT WHEN HE WENT HOME THE NEXT DAY AND WOKE UP WITH LEGS SWOLLEN; ALSO WITH SORES AND BLISTERS UP AND DOWN BOTH LEGS; PT HAVING TREMENDOUS AMOUNTS OF PAIN; PER PT IT IS MOSTLY ON THE BACKS OF THE LEGS/CALVES; PT HAS DIFFICULTY MOVING OWN LEGS RELATED TO EDEMA AND PAIN; MONITORING EQUIPMENT RE-EXPLAINED; EDUCATED REGARDING A FIB W/ RVR AND PLAN OF CARE; IV ACCESS IS 20G IN LAC; PT MADE AWARE OF NEED FOR MORE ACCESS; VERBALIZES UNDERSTANDING AND COMPLIANCY; PT LUNGS WITH WHEEZES THROUGH OUT; STATES THAT HE WEARS O2 AT HOME AT 3L PRN; CURRENTLY ON ROOM AIR WITH O2 SATS 91-94%; PT ASLO HAS NAVARRO CATH INTACT WITH CATHETER SECURITY DEVICE TO R UPPER THIGH; PLACED RELATED TO URINARY RETENTION; URINE IS CLEAR GORGE; SAFETY MEASURES INTRODUCED; PT VERBALZIES UNDERSTANDING AND COMPLAINCY; WILL CONTINUE TO MONITOR
--- NOTE | 2023-04-26 23:40 | NUR ---
OBTAINED IV ACCESS 22G IN R UPPER FOREARM AND 22G IN R LOWER FOREARM; IVF INFUSING AT PRESRIBED RATE AND CARDIZEM BOLUS ADMINISTERED ADN GTT STARTED AT 5 MG/HR; WILL MONITOR CLOSELY.
[2023-04-27] VITALS (74 sets, daily range): BP systolic 82–134; BP diastolic 37–81
--- NOTE | 2023-04-27 01:00 | NUR ---
DR. CHRISTOPHER NOTIFIED OF PT'S PAIN LEVEL WITHNOMEDS ORDERED AND B/P SOFT WITH CARDIZEM AT 10MG/HR WITH POOR RATE CONTROL. NEW ORDERS REC'D
--- NOTE | 2023-04-27 03:00 | NUR ---
PT MEDICATED EARLIER ORDERED; CARDIZEM TITRATED TO 5 MG/HR AT THIS TIME; PT CONTINES TO HAVE INTERMITTENT MOIST MANUFACTURING PROCESS ENGINEER COUGH; INSTRUCTED IF PRODUCTIVE TO ATTEMTP TO PROVIDE SPECIMEN; VERBALIZES UNDERSTANDING; CALL VELEZ WITHIN REACH
--- NOTE | 2023-04-27 04:15 | NUR ---
PT RESTING RATE REMAINS CONTROLLED SINCE DIGOXIN ADMINISTRATION AND CARDIZEM GTT TITRATION; B/P REMAINS MILDLY HYPOTENZIVE BUT MAP MAINLY 65 OR >; CALL VELEZ WITHIN REACH
--- NOTE | 2023-04-27 05:30 | NUR ---
PT DOZING; AFIB RATE CONTROLLED; PULSE OX 95%; NO S/S OF DISTRESS OR DISCOMFORT; CALL VELEZ WITHIN REACH.
[2023-04-27 05:38] LABS: BASO% 0.5 % (0-3); EOS% 0.9 % (0-8); IMMATURE GRANULOCYTES 0.7 % (0.0-5.0); LYMPH% 6.2 % (15-41); MEAN CELL VOLUME 83.9 fL CALC (80.0-100.0); MEAN CORPUSCULAR HGB 26.4 pG CALC (26.0-32.0); MEAN CORPUSCULAR HGB CONC 31.5 g/dL CAL (32.0-36.0); MONO% 11.1 % (2-13); NEUT# 9.27 thou/uL (1.82-7.42); NEUT% 80.6 % (42-76); RED BLOOD COUNT 3.41 mill/uL (4.70-6.10); RED CELL DISTRI WIDTH 20.4 % (11.5-15.5)
[2023-04-27 05:42] LABS: HEMATOCRIT 28.6 % (39.0-50.0)
[2023-04-27 05:54] LABS: ALKALINE PHOSPHATASE 137 u/l (38-126); ANION GAP 7 (6-22 (CALC)); BILIRUBIN, TOTAL 0.7 mg/dL (0.2-1.3); BUN 19 mg/dL (8-23); BUN/CREATININE RATIO 21 (12-20 (CALC)); CARBON DIOXIDE 23 mmol/l (22-30); CHLORIDE 110 mmol/l (95-108); CREATININE 0.9 mg/dL (0.7-1.3); GFR FOR AFR.AMER. > 60 ML/MIN (>=60 (CALC)); GFR OTHER RACES > 60 ML/MIN (>=60 (CALC)); MAGNESIUM 1.8 mg/dL (1.6-2.3); POTASSIUM 3.9 mmol/l (3.5-5.1); SGOT/AST 38 u/l (19-48); SODIUM 136 mmol/l (137-146)
[2023-04-27 05:56] LABS: TOTAL PROTEIN 4.3 g/dL (6.3-8.2)
--- NOTE | 2023-04-27 07:30 | NUR ---
pt resting in bed with closed; easily aroused to light touch; no apparent distress noted at this time; assessment completed; pt extremely EYAK: pt alert and oriented; admits to pain to ble, blisters; no n/v noted; resp even and unlabored; lungs clear, wheeze to right lobes; skin color wnl; ra; hr irreg; wk pedal pulses; edema noted to ble; afib on monitor; abd soft with bs present; no bm noted per senior writer; doe to gravity draining well; cath strap intact; #22 to r distal fa with ivf infusing without complication; #22 to rfa saline locked; #20 to lac saline locked; all lines flushed and patent; open wounds, blisters noted to ble with drainage noted; pics obtained; plan of care/ meds explained; call light within reach; will continue to monitor
--- NOTE | 2023-04-27 08:11 | NUR ---
awake in bed; medicated for pain; offers no addtional complaints; afib on monitor; call light within reach
--- NOTE | 2023-04-27 10:14 | NUR ---
PROVIDER ANTIONETTE JUST SPOKE WITH PT. WOUND CONSULT AND INFECTIOUS DISEASE DISCUSSED. PATIENT IS LYING IN BED, COMFORTABLE BUT COMPLAINS OF PAIN IN LEGS UPON ASSESSMENT. CALL LIGHT IN REACH.
--- NOTE | 2023-04-27 10:20 | NUR ---
Dr Freeman present at bedside to assess pt and discuss plan of care
--- NOTE | 2023-04-27 10:20 | NUR ---
S: YOANDY BANERJEE is a 62 M who presents with UTI and multiple lower extremity blisteres/skin ulcers (r/o cellulitis). He has a history of hypertension, asthma, COPD and GERD. All medications in patient's chart were reviewed. O: VS: BP: 100/57 mmHg, P: 100 bpm, RR: 14 bpm, T: 100.0 F W: 63 kg, HT: 64 in, Scr: 0.9 mg/dl, CrCl: 73.9 ml/min A: Blood culture is pending. Urine culture show >100,000 CFU/ML of mixed gram positive jorge luis, probable skin contaminant. P: Patient is on cefepime 1 gm IV Q12H. Vancomycin ordered for pharmacy to dose. Start Vancomycin 750 mg IV Q12H. Vancomycin trough is drawn before the 4th dose on 04/28/23 @1230. Vancomycin goal trough is between 10-15 mcg/ml. Pharmacy will follow and or advise on antibiotics use as needed.
--- NOTE | 2023-04-27 12:23 | NUR ---
awake in bed; eating lunch; offers no complaints; afib on monitor; call light within reach; will continue to monitor
--- NOTE | 2023-04-27 12:50 | NUR ---
Tele cardiology consult completed with Dr glover
--- NOTE | 2023-04-27 14:10 | NUR ---
resting in bed with eyes closed; no apparent distress noted; afib on monitor; call light within reach; will continue to monitor
--- NOTE | 2023-04-27 15:30 | NUR ---
Tele consult completed with TITA Diaz
--- NOTE | 2023-04-27 16:06 | NUR ---
INFECTIOUS DISEASE SPOKE TO PT. WOUND CULTURES OBTAINED. CONTINUE VANCOMYCIN AND CEFEPIME. PT WAS GIVEN DIGOXIN 0.25 MG IVP @ 1543 FOR HEART RATE IN 130'S. REPOSTINED AND CHANGED. LEFT LEG ELEVATED WITH PILLOW. 40 MG OF LASIX GIVEN IVP @ 1345. PT CURRENTLY RESTING IN BED. CALL LIGHT IN REACH.
--- NOTE | 2023-04-27 17:33 | NUR ---
US at bedside
--- NOTE | 2023-04-27 17:58 | NUR ---
PT IS CURRENTLY SITTING UP EATING DINNER. PT IS COMFORTABLE, REPORTS NO PAIN. CALL LIGHT IS IN REACH.
--- NOTE | 2023-04-27 18:47 | NUR ---
Dr minaya notified of hr 120-130s, afib
--- NOTE | 2023-04-27 19:15 | NUR ---
awakens easily. nad. satellite project site monitor shows a fib pvcs. ivf infusing well. po fluids taken fair. doe cath in place. urine cloudy yellow. has multi open areas, scabs & blisters on bilat lower exts. fall precautions cont.
--- NOTE | 2023-04-27 20:10 | NUR ---
lortab v given for leg pain.
--- NOTE | 2023-04-27 22:00 | NUR ---
eyes closed. no distress. color television console monitor shows a fib pvcs.
[2023-04-28] VITALS (24 sets, daily range): BP systolic 94–147; BP diastolic 54–77
--- NOTE | 2023-04-28 00:01 | NUR ---
eyes closed. no distress. doe draining well.
--- NOTE | 2023-04-28 04:30 | NUR ---
lab here. blood drawn.
[2023-04-28 04:55] LABS: BASO% 0.5 % (0-3); EOS% 1.8 % (0-8); HEMOGLOBIN 10.1 g/dl (14.0-18.0); IMMATURE GRANULOCYTES 0.7 % (0.0-5.0); LYMPH% 7.9 % (15-41); MEAN CELL VOLUME 84.4 fL CALC (80.0-100.0); MEAN CORPUSCULAR HGB 26.6 pG CALC (26.0-32.0); MEAN CORPUSCULAR HGB CONC 31.6 g/dL CAL (32.0-36.0); MONO% 10.9 % (2-13); NEUT# 8.4 thou/uL (1.82-7.42); NEUT% 78.2 % (42-76); RED BLOOD COUNT 3.79 mill/uL (4.70-6.10); RED CELL DISTRI WIDTH 20.9 % (11.5-15.5)
[2023-04-28 05:38] LABS: ALBUMIN 2.1 g/dL (3.2-5.0); ALKALINE PHOSPHATASE 134 u/l (38-126); ANION GAP 6 (6-22 (CALC)); BILIRUBIN, TOTAL 0.8 mg/dL (0.2-1.3); BUN 17 mg/dL (8-23); BUN/CREATININE RATIO 20 (12-20 (CALC)); CARBON DIOXIDE 26 mmol/l (22-30); CHLORIDE 108 mmol/l (95-108); CREATININE 0.9 mg/dL (0.7-1.3); GFR FOR AFR.AMER. > 60 ML/MIN (>=60 (CALC)); GFR OTHER RACES > 60 ML/MIN (>=60 (CALC)); MAGNESIUM 1.6 mg/dL (1.6-2.3); POTASSIUM 3.9 mmol/l (3.5-5.1); SGOT/AST 32 u/l (19-48); SODIUM 136 mmol/l (137-146); TOTAL PROTEIN 4.4 g/dL (6.3-8.2)
--- NOTE | 2023-04-28 06:00 | NUR ---
eyes closed. no distress. pinion sorter shows a fib pvcs.
--- NOTE | 2023-04-28 07:35 | NUR ---
pt awake in bed; no apparent distress noted; assessment completed at this time; pt alert and oriented; admits to pain in ble rating 9/10; will medicate; no n/v noted; resp even and unlabored; lungs coarse with wheezing throughout; skin color wnl; ra; moist website optimization strategist cough noted; hr irreg; wk pedal pulses; 2+ edema noted to ble; afib on monitor; abd soft with bs present; no bm noted per documentation writer; doe to gravity draining well; cath strap intact; #22 x2 to rfa saline locked; flushed and patent; no redness or edema noted at site; wounds/ blisters noted to ble; plan of care/ meds explained; call light within reach; will continue to monitor
--- NOTE | 2023-04-28 07:55 | NUR ---
Dr Cummings present at bedside to assess pt and discuss plan of care
--- NOTE | 2023-04-28 08:00 | NUR ---
awake in bed; afib on monitor; call light within reach; will continue to monitor
--- NOTE | 2023-04-28 10:00 | NUR ---
resting in bed with eyes closed; no apparent distress noted; afib on monitor; call light within reach; will continue to monitor
--- NOTE | 2023-04-28 12:03 | NUR ---
pt awake in bed; eating lunch; offers no complaints; call light within reach; will continue to monitor
--- NOTE | 2023-04-28 13:40 | NUR ---
awake; declined bath at present; draw sheet and chucks changed; disposable chucks changed under legs; blisters/wounds cont with serosang drainage; no foul odor noted; repositioned; slight redness noted to coccyx; pt encouraged to repositioned q2 hours; states legs hurt too bad
--- NOTE | 2023-04-28 13:44 | NUR ---
S: YOANDY BANERJEE is a 62 M who presents with UTI and r/o cellulitis of lower extremity. O: VS: BP 116/60, P 124, RR 15, T 97.6 W 63 kg, HT 64 in, Scr=0.9, CrCl= 73.9 ml/min Vancomycin trough 04/28/23@1222 = 12 A: Blood culture is pending. Wound culture is pending. Vancomycin trough is within therapeutic range. Continue current dose. P: Patient is on vancomycin 750 mg IV q12h and cefepime 1 g IV q12h. Vancomycin ordered for pharmacy to dose. Continue Vancomycin 750 mg IV Q12H. Vancomycin trough is drawn before the dose on 04/30/23 @0030. Vancomycin goal trough is between 10-15 mcg/ml. Pharmacy will follow and or advise on antibiotics use as needed.
--- NOTE | 2023-04-28 14:15 | NUR ---
pt resting in bed with eyes closed; no apparent distress noted; iv intact; afib on monitor; call light within reach; will continue to monitor
--- NOTE | 2023-04-28 16:20 | NUR ---
awake in bed; offers no complaints; iv intact; afib on monitor; call light within reach; will continue to monitor
--- NOTE | 2023-04-28 18:19 | NUR ---
resting in bed with eyes closed; no apparent distress noted; afib on monitor; iv intact; call light within reach
--- NOTE | 2023-04-28 18:41 | NUR ---
CALLED [facility] FOR AN AIR MATTRESS PLACEMENT FOR THIS PATIENT. SPOKE TO KRYSTYNA AND WAS GIVEN CONFIRMATION NUMBER [id number].
--- NOTE | 2023-04-28 19:20 | NUR ---
awakens easily. denies distress. sanding machine buffer shows a fib pvcs. #22 rfa saline lock. po fluids taken well. doe cath in place. urine clear yellow. blisters bursting & weeping. scabs cont. areas appear to be more red around them tonight. fall precautions cont.
--- NOTE | 2023-04-28 21:00 | NUR ---
lortab v given per request for leg pain.
[2023-04-29] VITALS (24 sets, daily range): BP systolic 102–138; BP diastolic 57–79
--- NOTE | 2023-04-29 01:00 | NUR ---
awake. requested snack-given.
--- NOTE | 2023-04-29 02:00 | NUR ---
resting quietly. resps een & unlabored. no apparent distress.
--- NOTE | 2023-04-29 04:30 | NUR ---
lab here. blood drawn.
--- NOTE | 2023-04-29 05:55 | NUR ---
alfalfa dehydrator operator shows a fib pvcs.
--- NOTE | 2023-04-29 07:10 | NUR ---
pt awake in bed; no apparent distress noted; assessment completed at this time; pt alert and oriented; admits to pain to ble rating 9/10; will medicate; no n/v noted; resp even and unlabored; lungs coarse throughout; skin color wnl; ra; bus info consultant moist cough noted; hr irreg; wk pedal pulses; 2+ edema noted to feet; afib on monitor; abd soft with bs present; no bm noted per insurance writer; doe to gravity draining clear yellow urine; cath strap intact; #22 x2 to rfa saline locked; no redness or edema noted at sites; blisters/ wounds to ble with less drainage; appears more dry; appears more red; repositioned; plan of care/ meds explained; call light within reach; will continue to monitor
[2023-04-29 07:31] LABS: BASO% 0.4 % (0-3); EOS% 2.7 % (0-8); HEMATOCRIT 33.3 % (39.0-50.0); HEMOGLOBIN 10.2 g/dl (14.0-18.0); LYMPH% 6.7 % (15-41); MEAN CELL VOLUME 84.5 fL CALC (80.0-100.0); MEAN CORPUSCULAR HGB 25.9 pG CALC (26.0-32.0); MEAN CORPUSCULAR HGB CONC 30.6 g/dL CAL (32.0-36.0); MONO% 11.2 % (2-13); NEUT# 7.33 thou/uL (1.82-7.42); RED BLOOD COUNT 3.94 mill/uL (4.70-6.10); RED CELL DISTRI WIDTH 20.8 % (11.5-15.5)
[2023-04-29 07:46] LABS: ALBUMIN 2.3 g/dL (3.2-5.0); ALKALINE PHOSPHATASE 138 u/l (38-126); ANION GAP 6 (6-22 (CALC)); BILIRUBIN, TOTAL 0.8 mg/dL (0.2-1.3); BUN 19 mg/dL (8-23); BUN/CREATININE RATIO 23 (12-20 (CALC)); CARBON DIOXIDE 29 mmol/l (22-30); CHLORIDE 101 mmol/l (95-108); CREATININE 0.8 mg/dL (0.7-1.3); GFR FOR AFR.AMER. > 60 ML/MIN (>=60 (CALC)); GFR OTHER RACES > 60 ML/MIN (>=60 (CALC)); POTASSIUM 3.9 mmol/l (3.5-5.1); SGOT/AST 29 u/l (19-48); SODIUM 132 mmol/l (137-146); TOTAL PROTEIN 4.7 g/dL (6.3-8.2)
--- NOTE | 2023-04-29 08:54 | NUR ---
Dr Cummings present at bedside to assess pt and discuss plan of care
--- NOTE | 2023-04-29 10:05 | NUR ---
awake in bed; offers no complaints; iv intact; afib on monitor; call light within reach;
--- NOTE | 2023-04-29 10:40 | NUR ---
Dr Garcia called this show card writer; update provided; metoprolol to be changed to 25mg BID
--- NOTE | 2023-04-29 12:10 | NUR ---
awake in bed eating lunch; offers no complaints; no apparent distress noted; afib on monitor; call light within reach; will continue to monitor
--- NOTE | 2023-04-29 14:06 | NUR ---
pt resting in bed with eyes closed; afib on monitor; call light within reach; will continue to monitor
--- NOTE | 2023-04-29 16:05 | NUR ---
pt awake in bed; offers no complaints; iv intact; afib on monitor; call light within reach; will continue to monitor
--- NOTE | 2023-04-29 16:50 | NUR ---
tele health consult completed with Dr Mcdaniel
--- NOTE | 2023-04-29 17:57 | NUR ---
pt awake in bed; no apparent distress; offers no complaints; afib on monitor; call light within reach
--- NOTE | 2023-04-29 19:00 | NUR ---
REPORT RECEIVED FROM OFF GOING NURSE.
--- NOTE | 2023-04-29 20:00 | NUR ---
PATIENT NOTED LYING IN BED RESTING COMFORTABLY WITH NO ACUTE DISTRESS NOTED. VSS. ASSESSMENT COMPLETED (SEE INTERVENTIONS). WILL CONTINUE TO MONITOR.
[2023-04-30] VITALS (15 sets, daily range): BP systolic 105–136; BP diastolic 52–78
--- NOTE | 2023-04-30 | NUR ---
NO CHANGES NOTED. WILL CONTINUE TO MONITOR.
--- NOTE | 2023-04-30 02:00 | NUR ---
NO CHANGES NOTED. PATIENT SLEEPING WITH NO ACUTE DISTRESS NOTED. WILL CONTINUE TO MONIOR.
--- NOTE | 2023-04-30 04:00 | NUR ---
NO CHANGES NOTED. WILL CONTINUE TO MONITOR.
[2023-04-30 05:44] LABS: BASO% 0.5 % (0-3); EOS% 2.5 % (0-8); HEMATOCRIT 32.8 % (39.0-50.0); HEMOGLOBIN 10.3 g/dl (14.0-18.0); IMMATURE GRANULOCYTES 1.1 % (0.0-5.0); MEAN CORPUSCULAR HGB 26.1 pG CALC (26.0-32.0); MEAN CORPUSCULAR HGB CONC 31.4 g/dL CAL (32.0-36.0); MONO% 14.7 % (2-13); NEUT# 5.82 thou/uL (1.82-7.42); NEUT% 70.2 % (42-76); RED BLOOD COUNT 3.95 mill/uL (4.70-6.10); RED CELL DISTRI WIDTH 20.7 % (11.5-15.5)
[2023-04-30 05:56] LABS: ANION GAP 8 (6-22 (CALC)); BUN 18 mg/dL (8-23); BUN/CREATININE RATIO 24 (12-20 (CALC)); CARBON DIOXIDE 29 mmol/l (22-30); CHLORIDE 100 mmol/l (95-108); CREATININE 0.8 mg/dL (0.7-1.3); GFR FOR AFR.AMER. > 60 ML/MIN (>=60 (CALC)); GFR OTHER RACES > 60 ML/MIN (>=60 (CALC)); POTASSIUM 3.9 mmol/l (3.5-5.1); SODIUM 133 mmol/l (137-146)
--- NOTE | 2023-04-30 07:35 | NUR ---
ASSESSMENT IS COMPLETED : IV SITE IS FREE FROM REDNESS OR EDEMA. HR IS REG,PULSES ARE WEAK X4, ABD IS SOFT WITH ACTIVE BS. BOTH LEGS HAVE SMALL AMOUNT OF SWELLING NOTED. DRAINAGE OF BLOOD ON THE BLISTERS . SCABBING OTHERWISE. BREATH SOUNDS ARE CLEAR AND COARSE. CONTINUE TO OSBERVE AND MONITOR.
--- NOTE | 2023-04-30 10:00 | NUR ---
INFORMED US THAT PT IS MOVED TO 274. GAVE REPORT TO ASIM TRAN AT [id number]
--- NOTE | 2023-04-30 10:40 | NUR ---
SPOKE WITH SISTER IN [place], PT GAVE PERMISSION, INFORMED OF WHAT WAS GOING ON AND WAS INFORMED THAT IT RUNS IN THE FAMILY WITH DIABETES, AND HEART PROBLEMS. PHYSICAL THERAPY IN TO VISIT WITH PT. CONTINUE TO OBSERVE AND MONITOR.
--- NOTE | 2023-04-30 11:04 | NUR ---
PT TRANSFERED BY BED WITH NAVARRO, TELE MONITOR AND AIR MATTRESS, INFORMED ASIM TRAN
--- NOTE | 2023-04-30 11:05 | NUR ---
PT TRANSFERRED FROM ICU VIA BED. PT IS ALERT AND ORIENTED X 3. PT IV # 22 TO LAC CLEAN AND INTACT, SL. PT IS ON RA WITH O2 @ 96%. PT NAVARRO IS PATENT AND DRAINING DARK, YELLOW URINE. PT HAS NO C/O PAIN AT THIS TIME. PT HAS CALL LIGHT WITHIN REACH AND SAFETY MEASURES IN PLACE AT THIS TIME
--- NOTE | 2023-04-30 12:00 | NUR ---
PT IN BED WITH HOB EATING LUNCH , PT HAS NO C/O PAIN AT THIS TIME. PT HAS CALL LIGHT WITHIN REACH AND SAFETY MEASURES IN PLACE AT THIS TIME.
--- NOTE | 2023-04-30 15:00 | NUR ---
PT DOWN TO ECHO IN BED.
--- NOTE | 2023-04-30 18:23 | NUR ---
BOOKED A FOLLOW-UP CARDIOLOGY CONSULT WITH DR SWEET VIA THE [facility] BRIAN AT 1823 HRS.
--- NOTE | 2023-04-30 20:00 | NUR ---
RECEIVED REPORT FROM NURSE ASIM, PATIENT WATCHING TV, RESTING IN BED, STATED NOT BEING ABLE TO WALK BECAUSE OF THE WOUND AND PAIN ON LEGS. IV ON RFA G 22 SALINE LOCK PATENT AND FLUSHES WELL, HOOKED ON TELEMETRY, NOT IN DISTRESS, NOTED WOUNDS ON BILAT LOWER EXTERITY OPEN TO AIR AT THIS TIME, WILL DO WOUND DRESSING, CALL LIGHT IN REACH.
--- NOTE | 2023-05-01 | NUR ---
PATINET RESTING IN BED, BREATHING EVEN UNALBORED, REMAINS ON TLEMETRY, LEGS ELEVATED CALL LIGHT IN REACH.
[2023-05-01 03:25] VITALS: BP 112/53
--- NOTE | 2023-05-01 05:07 | NUR ---
PATIENT NOT IN DISTRESS, BREATHING EVEN UNLABORED CALL LIGHT IN REACH.
--- NOTE | 2023-05-01 05:23 | NUR ---
MARIELA REFUSED TO BE WEIGHED THIS MORNING STATED TO TIRED, AND THERAPIST WILL GET ME UP THIS MORNING
[2023-05-01 06:26] LABS: BASO% 1.1 % (0-3); EOS% 4.4 % (0-8); HEMATOCRIT 33.1 % (39.0-50.0); HEMOGLOBIN 10.3 g/dl (14.0-18.0); IMMATURE GRANULOCYTES 2.1 % (0.0-5.0); LYMPH% 12.7 % (15-41); MEAN CELL VOLUME 84.7 fL CALC (80.0-100.0); MEAN CORPUSCULAR HGB 26.3 pG CALC (26.0-32.0); MEAN CORPUSCULAR HGB CONC 31.1 g/dL CAL (32.0-36.0); MONO% 15.7 % (2-13); NEUT# 4.62 thou/uL (1.82-7.42); RED BLOOD COUNT 3.91 mill/uL (4.70-6.10); RED CELL DISTRI WIDTH 20.8 % (11.5-15.5)
[2023-05-01 06:55] VITALS: BP 123/67
--- NOTE | 2023-05-01 07:00 | NUR ---
BEDSIDE REPORT RECIEVED
[2023-05-01 07:04] LABS: ANION GAP 6 (6-22 (CALC)); BUN 24 mg/dL (8-23); BUN/CREATININE RATIO 20 (12-20 (CALC)); CARBON DIOXIDE 32 mmol/l (22-30); CHLORIDE 101 mmol/l (95-108); CREATININE 1.2 mg/dL (0.7-1.3); GFR FOR AFR.AMER. > 60 ML/MIN (>=60 (CALC)); GFR OTHER RACES > 60 ML/MIN (>=60 (CALC)); POTASSIUM 4.1 mmol/l (3.5-5.1); SODIUM 134 mmol/l (137-146)
--- NOTE | 2023-05-01 08:30 | NUR ---
PT RESTING IN SEMI FOWLERS POSITION. PT A/OX3. RESPIRATIONS EVENAND UNLABORED ON ROOM AIR. LUNG SOUNDS CLEAR. HEART RHYTHM NORMAL. BOWEL SOUNDS ACTIVE. IV SITES TO RFA PATENT. DRESSING TO BLE NOTED, REMAINS CDI. PT C/O PAIN 10/09 TO LLE, MEDICATED PER EMAR. PT DENIES OF ANY ADDITIONAL NEEDS. PT ORIENTED TO ROOM AND CALL LIGHT. ALL SAFETY PRECAUTIONS ARE IN PLACE WITH CALL LIGHT IN REACH. AIR MATRESS NOTED.
[2023-05-01 10:52] VITALS: BP 120/64
--- NOTE | 2023-05-01 12:33 | NUR ---
PT RESTING IN SEMI FOWLERS POSITION. RESPIRATIONS EVEN AND UNLABORED ON ROOM AIR.TELE MONITORING IN PLACE. DRESSING BLE CDI. PT DENIES OF ANY NEEDS. ALL SAFETY PRECAUTIONS ARE IN PLACE WITH CALL LIGHT IN REACH
[2023-05-01 14:46] VITALS: BP 116/58
--- NOTE | 2023-05-01 16:08 | NUR ---
PT RESTING IN SEMI FOWLERS POSITION. RESPIRATIONS EVEN AND UNLABORED ON ROOM AIR. TELE MONITORING IN PLACE. IV PATENT. DRESSING TO BLE CDI. AIR MATRESS NOTED. PT STATES PAIN MEDICATION HAS HELPED. PT DENIES OF ANY NEEDS.ALL SAFETY PRECAUTIONS ARE IN PLACE WITH CALL LIGHT IN REACH
[2023-05-01 19:24] VITALS: BP 111/61
--- NOTE | 2023-05-01 20:00 | NUR ---
PT RESTING ASSESSMENT DONE. NO DISTRESS NOTED. LEG WRAPS CHECKED NO DRAINAGED NOTED. PATIENT REPORTED PAIN 7/10 PRN MED GIVEN. CALL LIGHT WITHIN REACH. PLAN OF CARE ONGOING.
--- NOTE | 2023-05-02 | NUR ---
PT SLEEPING NO DISTRESS NOTED ON EXAM. NO CHANGE. CALL LIGHT WITHIN REACH. PLAN OF CARE ONGOING.
[2023-05-02 00:27] VITALS: BP 123/64
[2023-05-02 05:06] VITALS: BP 117/53
[2023-05-02 06:08] LABS: BASO% 0.7 % (0-3); EOS% 5.5 % (0-8); HEMOGLOBIN 10.8 g/dl (14.0-18.0); IMMATURE GRANULOCYTES 4.3 % (0.0-5.0); LYMPH% 14.2 % (15-41); MEAN CELL VOLUME 85.2 fL CALC (80.0-100.0); MEAN CORPUSCULAR HGB 26.3 pG CALC (26.0-32.0); MEAN CORPUSCULAR HGB CONC 30.9 g/dL CAL (32.0-36.0); MONO% 14.8 % (2-13); NEUT# 4.17 thou/uL (1.82-7.42); NEUT% 60.5 % (42-76); RED BLOOD COUNT 4.11 mill/uL (4.70-6.10); RED CELL DISTRI WIDTH 20.8 % (11.5-15.5)
[2023-05-02 06:42] LABS: ANION GAP 8 (6-22 (CALC)); BUN 23 mg/dL (8-23); BUN/CREATININE RATIO 26 (12-20 (CALC)); CARBON DIOXIDE 33 mmol/l (22-30); CHLORIDE 100 mmol/l (95-108); CREATININE 0.9 mg/dL (0.7-1.3); GFR FOR AFR.AMER. > 60 ML/MIN (>=60 (CALC)); GFR OTHER RACES > 60 ML/MIN (>=60 (CALC)); POTASSIUM 4.6 mmol/l (3.5-5.1); SODIUM 136 mmol/l (137-146)
--- NOTE | 2023-05-02 07:00 | NUR ---
BEDSIDE REPORT RECIEVED
[2023-05-02 07:35] VITALS: BP 119/60
--- NOTE | 2023-05-02 08:05 | NUR ---
PT RESTING IN SEMI FOWLERS POSITION. PT A/OX3. RESPIRATIONS EVEN AND UNLABORED ON ROOM AIR. EXPIRATORY WHEEZING NOTED UPON ASCULATION OF LUNG. HEART RHYTHM NORMAL WITH TELE IN PLACE. BOWEL SOUNDS ACTIVE. #22G RFA PATENT. NAVARRO CATH DRAINING PER GRAVITY. CLEAR GORGE URINE NOTED. DRESSING TO BLE REMAINS CDI AT THIS TIME, DUE TO BE CHANGED TODAY. PT C/O 10/09 PAIN IN BLE, PAIN MEDICATION NOT YET DUE. PT DENIES OF ANY ADDITIONAL NEEDS. ALL SAFETY PRECAUTIONS ARE IN PLACE WITH CALL LIGHT IN REACH.
--- NOTE | 2023-05-02 09:18 | NUR ---
PT WAS ASKED IF HE WANTED TO GET WASHED BY STUDENT NURSE. PT TOLD HER LATER HE WANTED TO REST FOR A LITTLE WHILE.
[2023-05-02 10:51] VITALS: BP 114/60
--- NOTE | 2023-05-02 11:46 | NUR ---
PT RESTING IN SEMI FOWLERES POSITION. RESPIRATIONS EVEN AND UNLABORED ON ROOM AIR. TELE MONITORIGN IN PLACE. DRESSING CDI. IV PATENT. PT DENIES OF ANY NEEDS. ALL SAFETY PRECAUTIONS ARE IN PLACE WITH CALL LIGHT IN REACH
--- NOTE | 2023-05-02 13:49 | NUR ---
DRESSING TO BLE CHANGED AT THIS TIME. PHOTOS OBTAINED. DRESSING PER WOUND CARE ORDERS. PT TOLERATED WELL. PAIN MEDICATION ADMINISTERED. PT ASSISTED BACK INTO BED. ALL SAFETY PRECAUTIONS ARE IN PLACE WITH CALL LIGHT IN REACH
--- NOTE | 2023-05-02 15:25 | NUR ---
PT RESTING IN SEMI FOWLERS. RESPIRATIONS EVEN AND UNLABORED ON ROOM AIR. TELE MONITORING IN PLACE. #22G RFA REMOVED DUE TO BE CHANGED. NEW #22G LFA STARTED, SITE PATENT. DRESSING TO BLE REMAINS CDI. PT REQUEST FOR SIDE RAILS TO BE UP TO COMPLETE EXCERISES SUGGESTED BY PHYSICAL THERAPY. PT DENIES OF ANY ADDITIONAL NEEDS. ALL SAFETY PRECAUTIONS ARE IN PLACE WITH CALL LIGHT IN REACH.
[2023-05-02 15:33] VITALS: BP 108/51
--- NOTE | 2023-05-02 17:29 | NUR ---
PT GIVEN I.S. PT EDUCATED ON USE AND ABLE TO DEMONSTRATE 2500.
[2023-05-02 19:26] VITALS: BP 128/65
--- NOTE | 2023-05-02 23:42 | NUR ---
PT IS ALERT AND ORIENTED X 3 . NAVARRO CATH PATENET DRAINING YELLOW URINE. JITENDRA DIET AND FLUIDS WELL. RESPIRATIONS ARE EVEN AND NON LABORED. DSGS INTACT BLE. MEDICATED FOR PAIN ORDERED WITH GOOD EFFECT. PT IS SLEEPING WELL. ON TELE SINUS RYTHM 66. SAFETY PRECAUTIONS MAINTAINED CALL LIGHT IN REACH
[2023-05-03] VITALS (7 sets, daily range): BP systolic 105–127; BP diastolic 50–64
--- NOTE | 2023-05-03 03:27 | NUR ---
PT SLEEPING WELL. ON TELE NSR 66. NAVARRO CATH DRAINING WELL YELLOW URINE. RESPIRATIONS ARE EVEN, NON LABORED. TOP BED RAILS UP. BED IS LOCKED CALL LIGHT IN REACH
[2023-05-03 06:04] LABS: BASO% 0.9 % (0-3); EOS% 4.6 % (0-8); HEMATOCRIT 34.4 % (39.0-50.0); HEMOGLOBIN 10.7 g/dl (14.0-18.0); IMMATURE GRANULOCYTES 5.5 % (0.0-5.0); LYMPH% 17.2 % (15-41); MEAN CELL VOLUME 85.4 fL CALC (80.0-100.0); MEAN CORPUSCULAR HGB 26.6 pG CALC (26.0-32.0); MEAN CORPUSCULAR HGB CONC 31.1 g/dL CAL (32.0-36.0); MONO% 16.3 % (2-13); NEUT# 3.75 thou/uL (1.82-7.42); NEUT% 55.5 % (42-76); RED BLOOD COUNT 4.03 mill/uL (4.70-6.10); RED CELL DISTRI WIDTH 20.5 % (11.5-15.5)
[2023-05-03 06:17] LABS: ANION GAP 8 (6-22 (CALC)); BUN 28 mg/dL (8-23); BUN/CREATININE RATIO 29 (12-20 (CALC)); CARBON DIOXIDE 31 mmol/l (22-30); CHLORIDE 100 mmol/l (95-108); CREATININE 0.9 mg/dL (0.7-1.3); GFR FOR AFR.AMER. > 60 ML/MIN (>=60 (CALC)); GFR OTHER RACES > 60 ML/MIN (>=60 (CALC)); POTASSIUM 4.5 mmol/l (3.5-5.1); SODIUM 134 mmol/l (137-146)
--- NOTE | 2023-05-03 07:00 | NUR ---
BEDSIDE REPORT RECIEVED.
--- NOTE | 2023-05-03 07:40 | NUR ---
PT SITTING UP IN CHAIR. PT A/OX3. ABSENTEE-SHAWNEE. RESPIRATIONS EVEN AND UNLABORED ON ROOM AIR. LUNG SOUNDS CLEAR. HEART RHYTHM NORMAL WITH TELE IN PLACE. BOWEL SOUNDS ACTIVE. #22G LFA PATENT. DRESSING TO BLE CDI. PT C/O 10/09 PAIN IN LOWER EXTERMITIES, MEDICATED PER EMAR. NAVARRO CATH DRAINING PER GRAVITY. PT DENIES OF ANY ADDITIONAL NEEDS. ALL SAFETY PRCAUTIONS ARE IN PLACE WITH CALL LIGHT IN REACH.
--- NOTE | 2023-05-03 11:33 | NUR ---
NAVARRO CATH REMOVED AT THIS TIME PER ORDER. PT TOLERATED WELL. PT EDUCATED ON NEED TO VOID AND BLADDER TRAIL. PT VERBALIZED UNDERSTANDING. URINAL AT BEDSIDE.
--- NOTE | 2023-05-03 12:27 | NUR ---
PT RESTING IN SEMI FOWLERS POSITION. RESPIRATIONS EVEN AND UNLABORED ON ROOM AIR. TELE MONITORING IN PLACE. IV REMAINS IN PLACE. PT HAS YET TO VOID. PT STATES HE WILL NEED A WHILE. PT DENIES OF ANY NEEDS. ALL SAFETY PRECAUTIONS ARE IN PLACE WITH CALL LIGHT IN REACH.
--- NOTE | 2023-05-03 14:35 | NUR ---
CLOUD SOFTWARE ENGINEER HAD PT STAND AND ATTEMPT TO VOID. PT UNABLE TO. BLADDER SCAN RESULTING IN 125. PT ASSISTED BACK INTO CHAIR. URINAL AT BEDSIDE
--- NOTE | 2023-05-03 16:27 | NUR ---
PT RESTING IN CHAIR. PT VOIDED 25 ML OF YELLOW URINE. BLADDER SCAN COMPLETED RESULTING IN [address] ADAN INFORMED. ORDERS TO PLACE NAVARRO DUE TO RETENTION. IV REMAINS IN PLACE. TELE MONITORING IN PLACE. PT DENIES OF ANY NEEDS. ALL SAFETY PRECAUTIONS IN PLACE WITH CALL LIGHT IN REACH
--- NOTE | 2023-05-03 17:20 | NUR ---
16F NAVARRO REINSERTED AT THIS TIME. 750 ML OF CLEAR YELLOW OUTPUT NOTED. NOTIFIED.
--- NOTE | 2023-05-03 23:14 | NUR ---
PT IS ALERT AND ORIENTED X 3. LYING IN BED WITH HOB ELEVATED. NAVARRO CATH DRAINING YELLOW URINE. JITENDRA DIET AND FLUIDS WELL ON TELE NSR 61. VSS. RESPIRATIONS ARE EVEN/NON LABORED. BLE DSGS DRY AND INTACT. SAFETY PRECAUTIONS MAINTAINED CALL LIGHT IN REACH
[2023-05-04 04:29] VITALS: BP 116/55
[2023-05-04 05:06] LABS: BASO% 1.3 % (0-3); EOS% 3.5 % (0-8); HEMATOCRIT 33.9 % (39.0-50.0); HEMOGLOBIN 10.6 g/dl (14.0-18.0); LYMPH% 19.8 % (15-41); MEAN CORPUSCULAR HGB 26.6 pG CALC (26.0-32.0); MEAN CORPUSCULAR HGB CONC 31.3 g/dL CAL (32.0-36.0); NEUT# 4.14 thou/uL (1.82-7.42); NEUT% 52.4 % (42-76); RED BLOOD COUNT 3.99 mill/uL (4.70-6.10); RED CELL DISTRI WIDTH 20.6 % (11.5-15.5)
--- NOTE | 2023-05-04 05:11 | NUR ---
pt slept well. on tele sinus rythm doe cath draining well yellow urine. respirations are even/non labored. saftey precautions maintained call light in reach
[2023-05-04 05:12] LABS: ANION GAP 9 (6-22 (CALC)); BUN 23 mg/dL (8-23); BUN/CREATININE RATIO 23 (12-20 (CALC)); CARBON DIOXIDE 28 mmol/l (22-30); CHLORIDE 101 mmol/l (95-108); GFR FOR AFR.AMER. > 60 ML/MIN (>=60 (CALC)); GFR OTHER RACES > 60 ML/MIN (>=60 (CALC)); POTASSIUM 4.1 mmol/l (3.5-5.1); SODIUM 134 mmol/l (137-146)
[2023-05-04 07:14] VITALS: BP 120/57
--- NOTE | 2023-05-04 09:30 | NUR ---
patient assisted to recliner.
[2023-05-04 10:38] VITALS: BP 126/57
--- NOTE | 2023-05-04 10:53 | NUR ---
BEDSIDE SHIFT REPORT COMPLETED. RESP EVEN AND UNLABORED. DENIES PAIN OR DISCOMFORT. STATES BILAT LEG WOUNDS ARE VERY "ITCHY"..WILL COMPLETE DRESSING CHANGES ACCORDING TO ORDERS.
[2023-05-04] MEDS ORDERED: TAMSULOSIN HCL0.4 MG PO (11:56)
--- NOTE | 2023-05-04 11:59 | NUR ---
DRESSSING CHANGE COMPLETED TO BILAT LOWER EXTREMITIES. BOTH LEGS FROM KNEE TO TIP OF TOES HAS MULTIPLE SCATTERED SCABBED AREAS. LEGS CLEANSED, AND DRIED. XEROFORM AND GAUZE APPLIED COVERED WITH KERLIX AND SECURED WITH CORAZON WRAP. TOLERATED PROCEDURE WELL. NAVARRO CATH SECURE AND CATH CARE PERFORMED.
[2023-05-04] MEDS ORDERED: LOPRESSOR25 MG PO (12:00)
[2023-05-04] MEDS ORDERED: CORDARONE/200 MG/TAB PO (12:01)
[2023-05-04] MEDS ORDERED: CEPHALEXIN500 MG PO (12:02)
[2023-05-04] MEDS ORDERED: FINASTERIDE5 MG PO (12:03)
[2023-05-04 15:50] VITALS: BP 114/55
--- NOTE | 2023-05-04 16:52 | NUR ---
Discharge instructions given. Patient verbalizes understanding of same. Discharged in stable condition via Wheelchair to Home with family. All belongings sent with pt. indwelling catheter intact. teaching info given to patient. IV site discontinued, cath intact. No edema , no redness, voices no discomfort.
--- NOTE | 2023-05-06 11:20 | NUR ---
CONTACTED [facility] TO SCHEDULE THE PICKUP OF A P500 AIR MATTRESS ASSIGNED TO THIS PATIENT. I SPOKE WITH LU AT 1120 HRS. CONFIRMATION # [id number].
== END 2023-05-04 16:41 | disposition home health service (06) | DRG 872 ==
LOC: ED 14:11 → ED-I 19:12 → ED 19:12 → ED-I 19:36 → ED 19:37 → ICU 19:37 → ED 22:51 → ICU 23:25 → MS2 04-27 10:25
PROVIDERS: Nurse Practitioner; Nurse Practitioner Family; Student in an Organized Health Care Education/Training Program; ADMIT Student in an Organized Health Care Education/Training Program; ATTEND Student in an Organized Health Care Education/Training Program
PROC: 0T9B70Z Drainage of Bladder with Drainage Device, Via Natural or Artificial Opening (ICD-10-PCS; principal; 2023-04-26)
PROC: 3E0234Z Introduction of Serum, Toxoid and Vaccine into Muscle, Percutaneous Approach (ICD-10-PCS; 2023-04-28)
PROC: 3E02340 Introduction of Influenza Vaccine into Muscle, Percutaneous Approach (ICD-10-PCS; 2023-04-28)
PROC: 0T9B70Z Drainage of Bladder with Drainage Device, Via Natural or Artificial Opening (ICD-10-PCS; 2023-05-03)
DX: A41.9 Sepsis, unspecified organism (principal); L97.929 Non-pressure chronic ulcer of unspecified part of left lower leg with unspecified severity; E87.20 Acidosis, unspecified; J44.1 Chronic obstructive pulmonary disease with (acute) exacerbation; N30.00 Acute cystitis without hematuria; L03.116 Cellulitis of left lower limb; L03.115 Cellulitis of right lower limb; N17.9 Acute kidney failure, unspecified; L97.919 Non-pressure chronic ulcer of unspecified part of right lower leg with unspecified severity; J96.11 Chronic respiratory failure with hypoxia; R65.20 Severe sepsis without septic shock; I11.0 Hypertensive heart disease with heart failure; I50.9 Heart failure, unspecified; R23.8 Other skin changes; B95.61 Methicillin susceptible Staphylococcus aureus infection as the cause of diseases classified elsewhere; I48.0 Paroxysmal atrial fibrillation; R33.9 Retention of urine, unspecified; K21.9 Gastro-esophageal reflux disease without esophagitis; H91.90 Unspecified hearing loss, unspecified ear; R60.0 Localized edema; E11.9 Type 2 diabetes mellitus without complications; F10.20 Alcohol dependence, uncomplicated; Z23 Encounter for immunization; Z99.81 Dependence on supplemental oxygen; Z79.01 Long term (current) use of anticoagulants; Z87.891 Personal history of nicotine dependence
CPT/HCPCS: J0692; J1160; J3370; J3475

== ENCOUNTER 2023-05-30 09:26 | Emergency (ER) | payer OTHER ==
[2023-05-30] VITALS (12 sets, daily range): BP systolic 119–168; BP diastolic 59–91
[~2023-05-30] VITALS: Ht 162.6 cm; Wt 60.1 kg
[~2023-05-30 09:26] MED LIST changes: +CEPHALEXIN500 MG PO; +CORDARONE/200 MG/TAB PO; +FINASTERIDE5 MG PO; +LOPRESSOR25 MG PO; +TAMSULOSIN HCL0.4 MG PO
[2023-05-30] MEDS ORDERED: SODIUM CHLORIDE 3,000 ML BAG FOR IRRIGATION IR ONE ×3 (10:00→14:50)
[2023-05-30 10:24] LABS: BASO% 0.7 % (0-3); EOS% 3.4 % (0-8); HEMATOCRIT 36.3 % (39.0-50.0); HEMOGLOBIN 11.3 g/dl (14.0-18.0); IMMATURE GRANULOCYTES 2.3 % (0.0-5.0); LYMPH% 10.8 % (15-41); MEAN CELL VOLUME 84.6 fL CALC (80.0-100.0); MEAN CORPUSCULAR HGB 26.3 pG CALC (26.0-32.0); MEAN CORPUSCULAR HGB CONC 31.1 g/dL CAL (32.0-36.0); MONO% 10.4 % (2-13); NEUT# 6.82 thou/uL (1.82-7.42); NEUT% 72.4 % (42-76); RED BLOOD COUNT 4.29 mill/uL (4.70-6.10); RED CELL DISTRI WIDTH 19.7 % (11.5-15.5)
[2023-05-30 10:45] LABS: ALKALINE PHOSPHATASE 158 u/l (38-126); ANION GAP 11 (6-22 (CALC)); BILIRUBIN, TOTAL 0.6 mg/dL (0.2-1.3); BUN 14 mg/dL (8-23); BUN/CREATININE RATIO 13 (12-20 (CALC)); CARBON DIOXIDE 23 mmol/l (22-30); CHLORIDE 108 mmol/l (95-108); CREATININE 1.1 mg/dL (0.7-1.3); GFR FOR AFR.AMER. > 60 ML/MIN (>=60 (CALC)); GFR OTHER RACES > 60 ML/MIN (>=60 (CALC)); SGOT/AST 28 u/l (19-48); SODIUM 137 mmol/l (137-146)
[2023-05-30 10:48] LABS: INTERNATIONAL NORMALIZED RATIO 1.1 RATIO (0.7-1.3); PROTHROMBIN TIME 10.8 SECONDS (9.0-12.5)
[2023-05-30 10:57] LABS: ALBUMIN 3.5 g/dL (3.2-5.0); TOTAL PROTEIN 6.8 g/dL (6.3-8.2)
[2023-05-30] MEDS ORDERED: OMNICEF300 MG PO (15:10)
== END 2023-05-30 15:31 | disposition home or self-care (01) ==
LOC: ED 09:26
PROVIDERS: Family Medicine
DX: R31.9 Hematuria, unspecified (principal); S00.83XA Contusion of other part of head, initial encounter; I11.0 Hypertensive heart disease with heart failure; I50.9 Heart failure, unspecified; I48.91 Unspecified atrial fibrillation; J44.9 Chronic obstructive pulmonary disease, unspecified; E11.9 Type 2 diabetes mellitus without complications; N40.0 Benign prostatic hyperplasia without lower urinary tract symptoms; F17.200 Nicotine dependence, unspecified, uncomplicated; W19.XXXA Unspecified fall, initial encounter; Z96.0 Presence of urogenital implants; Z20.822 Contact with and (suspected) exposure to COVID-19

== ENCOUNTER 2023-11-13 20:25 | Emergency (ER) | payer MEDICARE, MEDICAID ==
[~2023-11-13] VITALS: Ht 162.6 cm; Wt 55.0 kg
[2023-11-13] VITALS (13 sets, daily range): BP systolic 68–124; BP diastolic 39–62
[~2023-11-13 20:25] MED LIST changes: +OMNICEF300 MG PO
[2023-11-13] MEDS ORDERED: methylPREDNISolone SODIUM SUCC 125 MG/2 ML SDV IV ONE (21:05)
[2023-11-13] MEDS ORDERED: IPRATROPIUM-Albuterol 0.5MG-2.5MG/3 ML NEB ONE (21:05)
[2023-11-13] MEDS ORDERED: SODIUM CHLORIDE 0.9% 1,000 ML IV ONE (21:05)
[2023-11-13 21:44] LABS: BASO% 0.2 % (0-3); EOS% 4.9 % (0-8); HEMATOCRIT 34.7 % (39.0-50.0); HEMOGLOBIN 11.3 g/dl (14.0-18.0); IMMATURE GRANULOCYTES 4.5 % (0.0-5.0); MEAN CELL VOLUME 88.3 fL CALC (80.0-100.0); MEAN CORPUSCULAR HGB 28.8 pG CALC (26.0-32.0); MEAN CORPUSCULAR HGB CONC 32.6 g/dL CAL (32.0-36.0); MONO% 13.7 % (2-13); NEUT# 5.55 thou/uL (1.82-7.42); NEUT% 60.7 % (42-76); RED BLOOD COUNT 3.93 mill/uL (4.70-6.10); RED CELL DISTRI WIDTH 16.9 % (11.5-15.5)
[2023-11-13 21:57] LABS: ALBUMIN 3.9 g/dL (3.2-5.0); TOTAL PROTEIN 6.9 g/dL (6.3-8.2)
[2023-11-13 22:06] LABS: BILIRUBIN, TOTAL 0.4 mg/dL (0.2-1.3); CREATININE 10.6 mg/dL (0.7-1.3)
[2023-11-13] MEDS ORDERED: ALUM & MAG HYDROX-SIMETHICONE 30 ML PO ONE (22:10)
[2023-11-13] MEDS ORDERED: PANTOPRAZOLE SODIUM Sesquihydr 40 MG/TAB PO ONE (22:10)
[2023-11-14] VITALS (9 sets, daily range): BP systolic 111–135; BP diastolic 50–58
[2023-11-14] MEDS ORDERED: SODIUM CHLORIDE 0.9% 1,000 ML IV ONE (00:35)
[2023-11-14 01:27] LABS: URINE COLOR Brown
[2023-11-14 01:29] LABS: URINE BILIRUBIN - DIPSTICK Negative (NEGATIVE); URINE GLUCOSE - DIPSTICK Negative (NEGATIVE); URINE KETONE Trace mg/dL (NEGATIVE); URINE SPECIFIC GRAVITY 1.005
[2023-11-14 01:30] LABS: URINE BLOOD DIPSTICK Moderate (NEGATIVE); URINE LEUK ESTERASE Trace (NEGATIVE); URINE NITRITE - DIPSTICK Negative (Negative); URINE PROTEIN - DIPSTICK 30 mg/dL (NEG-TRACE); URINE UROBILINOGEN - DIPSTICK 0.2 E.U./dL (0.2)
[2023-11-14 01:39] LABS: URINE AMORPH SEDIMENT FEW hpf (NONE-FER); URINE BACTERIA MODERATE hpf; URINE RBC 25-50 RBC/hpf (0-5); URINE SQUAMOUS EPITHELIAL CELL MANY EPI/hpf (0-FEW); URINE YEAST MANY hpf
[2023-11-14] MEDS ORDERED: levoFLOXacin hemihydrate 250 MG/TAB PO ONE (02:00)
== END 2023-11-14 04:00 | disposition left against medical advice (07) ==
LOC: ED 20:25
PROVIDERS: Family Medicine
DX: N17.9 Acute kidney failure, unspecified (principal); B37.49 Other urogenital candidiasis; S50.312A Abrasion of left elbow, initial encounter; S80.212A Abrasion, left knee, initial encounter; I11.0 Hypertensive heart disease with heart failure; I50.9 Heart failure, unspecified; E11.9 Type 2 diabetes mellitus without complications; J44.9 Chronic obstructive pulmonary disease, unspecified; I48.91 Unspecified atrial fibrillation; H91.90 Unspecified hearing loss, unspecified ear; F17.200 Nicotine dependence, unspecified, uncomplicated; W19.XXXA Unspecified fall, initial encounter; Z99.81 Dependence on supplemental oxygen; Z53.29 Procedure and treatment not carried out because of patient's decision for other reasons

== ENCOUNTER 2024-04-04 11:23 | Inpatient (IN) | payer MEDICARE, MEDICAID ==
[2024-04-04] VITALS (43 sets, daily range): BP systolic 41–149; BP diastolic 21–87
[~2024-04-04] VITALS: Ht 162.6 cm; Wt 75.0 kg
--- NOTE | 2024-04-04 11:25 | NUR ---
PT TO ROOM 15 VIA EMS
[2024-04-04 12:03] LABS: BASO% 0.3 % (0-3); EOS% 0.1 % (0-8); IMMATURE GRANULOCYTES 1.8 % (0.0-5.0); LYMPH% 7.8 % (15-41); MEAN CORPUSCULAR HGB 21.9 pG CALC (26.0-32.0); MEAN CORPUSCULAR HGB CONC 29.5 g/dL CAL (32.0-36.0); NEUT# 10.83 thou/uL (1.82-7.42); RED BLOOD COUNT 3.66 mill/uL (4.70-6.10); RED CELL DISTRI WIDTH 18.4 % (11.5-15.5)
[2024-04-04 12:17] LABS: ALBUMIN 3.3 g/dL (3.2-5.0); HEMATOCRIT 27.1 % (39.0-50.0); TOTAL PROTEIN 6.6 g/dL (6.3-8.2)
[2024-04-04 12:25] LABS: CREATININE 1.5 mg/dL (0.7-1.3)
[2024-04-04 12:26] LABS: BILIRUBIN, TOTAL 2.6 mg/dL (0.2-1.3); POTASSIUM 6.7 mmol/l (3.5-5.1)
[2024-04-04] MEDS ORDERED: DEXTROSE 10% 500 ML BAG IV ONE (12:30)
[2024-04-04] MEDS ORDERED: INSULIN REGULAR (HUMAN) 100 UNIT/ML INJ IV ONE (12:30)
[2024-04-04] MEDS ORDERED: CALCIUM GLUCONATE 1 GM in SODIUM CHLORIDE 0.9% 50 ML IV ONE (12:30)
[2024-04-04] MEDS ORDERED: CALCIUM GLUCONATE 2 GM in SODIUM CHLORIDE 0.9% 100 ML IV ONE (12:30)
[2024-04-04] MEDS ORDERED: ALBUTEROL SULFATE 2.5 MG VIAL NEB ONE (12:35)
[2024-04-04] MEDS ORDERED: SODIUM CHLORIDE 0.9% 1,000 ML IV ONE (12:35)
[2024-04-04] MEDS ORDERED: CALCIUM GLUCONATE IV ONE (12:50)
[2024-04-04] MEDS ORDERED: SODIUM CHLORIDE 0.9% IV ONE (12:50)
--- NOTE | 2024-04-04 13:08 | NUR ---
ATTEMPTED TO GO OVER MED REC. PT DOES NOT REMEMBER NAMES AND DOSAGES. WAITING FOR FRIEND NHI WHO HAS KNOWLEDGE OF HIS MEDICATIONS.
--- NOTE | 2024-04-04 14:00 | NUR ---
16 TELUGU NAVARRO INSERTED. PT TOLERATED WELL. URINE SAMPLE SENT TO LAB.
[2024-04-04 14:14] LABS: URINE BLOOD DIPSTICK Small (NEGATIVE); URINE GLUCOSE - DIPSTICK 100 mg/dL (NEGATIVE); URINE KETONE Negative (NEGATIVE); URINE LEUK ESTERASE Trace (NEGATIVE); URINE NITRITE - DIPSTICK Negative (Negative); URINE PH 5.5 (4.5-8.0); URINE PROTEIN - DIPSTICK 100 mg/dL (NEG-TRACE); URINE SPECIFIC GRAVITY 1.025; URINE UROBILINOGEN - DIPSTICK 0.2 E.U./dL (0.2)
[2024-04-04 14:24] LABS: URINE COLOR Yellow
[2024-04-04 14:25] LABS: URINE YEAST MANY hpf
--- NOTE | 2024-04-04 15:01 | NUR ---
PT TO CT AT THIS TIME.
[2024-04-04 15:04] LABS: CREATININE 0.9 mg/dL (0.7-1.3)
[2024-04-04 15:41] LABS: POTASSIUM 3.7 mmol/l (3.5-5.1)
[2024-04-04] MEDS ORDERED: TAMSULOSIN0.4 MG PO (15:56)
--- NOTE | 2024-04-04 16:00 | NUR ---
MED REC COMPLETED WITH NHI, FAMILY FRIEND AND PATIENT.
[2024-04-04] MEDS ORDERED: cefTRIAXone SODIUM 2 GM in SODIUM CHLORIDE 0.9% 100 ML IV ONE (16:30)
[2024-04-04] MEDS ORDERED: AZITHROMYCIN 500 MG in SODIUM CHLORIDE 0.9% 500 ML IV ONE (16:30)
[2024-04-04] MEDS ORDERED: methylPREDNISolone SODIUM SUCC 125 MG/2 ML SDV IV ONE (16:35)
[2024-04-04 16:51] LABS: INTERNATIONAL NORMALIZED RATIO 2.5 RATIO (0.7-1.3); PROTHROMBIN TIME 25.2 SECONDS (9.0-12.5)
--- NOTE | 2024-04-04 17:04 | NUR ---
IV ABX RUNNING. WILL CONTINUE TO MONITOR.
--- NOTE | 2024-04-04 18:00 | NUR ---
PT EXTREMELY ANXIOUS AFTER STEROID ADMINISTRATION. NOTIFIED. ATIVAN IV ORDERED.
[2024-04-04] MEDS ORDERED: LORazepam 2 MG/ML IV ONE (18:10)
[2024-04-04] MEDS ORDERED: ALBUTEROL SULFATE 8 GM INH IN PRN (18:35)
[2024-04-04] MEDS ORDERED: SODIUM BICARBONATE 8.4% 50 ML/VIAL IV SCH (18:35)
--- NOTE | 2024-04-04 18:49 | NUR ---
REPORT GIVEN TO MSO NURSE
--- NOTE | 2024-04-04 18:57 | NUR ---
MD NOTIFIED PT SOUNDS EXTREMELY WHEEZY AND STILL SUPER ANXIOUS. BREATHING TREATMENTS ORDERED AND WILL BE ADMINISTERED PRIOR TO ADMITTING PT UPSTAIRS.
[2024-04-04] MEDS ORDERED: IPRATROPIUM-Albuterol 0.5MG-2.5MG/3 ML NEB ONE ×2 (19:00)
--- NOTE | 2024-04-04 19:00 | NUR ---
RECIEVED REPORT FROM MIROSLAVA TELLEZ.
--- NOTE | 2024-04-04 19:01 | NUR ---
700ML OF FLUID REMOVED FROM NAVARRO
[2024-04-04] MEDS ORDERED: DEXTROSE IV SCH ×2 (19:05→19:15)
[2024-04-04] MEDS ORDERED: SODIUM BICARBONATE IV SCH ×2 (19:05→19:15)
--- NOTE | 2024-04-04 20:37 | NUR ---
CALLED DR. MERINO, UPDATED DR. MERINO ON PT STATUS. PT NOTED WITH MODERATE ANXIETY DURING CHNAGE OF SHIFT REPORT. UPON REPORT ADRY TELLEZ. STATES PT BECAME ANXIOUS AFTER MEDICATION ADMINISTRATION. PT O2 READING WAS SATING AT 72 % TO 81 % DURING REPORT. MD NOTIFIED OF COMPLICATIONS OBTAINING O2 SAT READING ON FINGERS AND EAR LOBES. PT NOTED WITH COLD EXTREMITIES, WARM BLANKETS APPLIED. PT 02 SAT AT 99% ON 3L NC. DR. MERINO VOICES TO PLACE PT ON SODIUM BICARB DRIP.
[2024-04-04] MEDS ORDERED: APIXABAN BASE 5 MG TAB PO SCH (21:00)
[2024-04-04] MEDS ORDERED: ATORVASTATIN CALCIUM 20 MG/TAB PO SCH (21:00)
[2024-04-04] MEDS ORDERED: FAMOTIDINE 20 MG/TAB PO SCH (21:00)
[2024-04-04] MEDS ORDERED: CARVEDILOL 3.125 MG/TAB PO SCH (21:00)
[2024-04-04] MEDS ORDERED: FLUTICASONE/SALMETEROL 250 MCG/50 MCG PER DOSE INH IN SCH (21:00)
--- NOTE | 2024-04-04 21:40 | NUR ---
PT TRANSP[place] [facility] [place]
--- NOTE | 2024-04-04 21:40 | NUR ---
PT ARRIVED TO [facility] VIA STRETCHER FROM ER.
--- NOTE | 2024-04-04 22:00 | NUR ---
PT DROWSY, HAVING A HARD TIME STAYING AWAKE TO ANSWER ADMISSION QUESTIONS. LUNGS SOUNDS COARSE ON NC 2L. SKIN INTACT NO EDEMA NOTED CHER HOSED APPLIED. IV FLUIDS ONGOING WORKING PROPERLY. PT PROVIDED WITH ORAL FLUIDS. CALL LIGHT WITHIN REACH. PLAN OF CARE ONGOING.
[2024-04-05 00:34] VITALS: BP 126/65
--- NOTE | 2024-04-05 01:38 | NUR ---
PT SLEEPING NO DISTRESS NOTED STILL HAVING LABORED BREATHING. CALL LIGHT WITHIN REACH. BED ALARM ON. PLAN OF CARE ONGOING.
[2024-04-05 04:54] VITALS: BP 135/63
[2024-04-05 05:32] LABS: ALBUMIN 2.7 g/dL (3.2-5.0); CREATININE 1.6 mg/dL (0.7-1.3); TOTAL PROTEIN 5.6 g/dL (6.3-8.2)
[2024-04-05 05:37] LABS: BASO% 0.3 % (0-3); HEMATOCRIT 25.6 % (39.0-50.0); HEMOGLOBIN 7.6 g/dl (14.0-18.0); LYMPH% 7.7 % (15-41); MEAN CELL VOLUME 74.9 fL CALC (80.0-100.0); MEAN CORPUSCULAR HGB 22.2 pG CALC (26.0-32.0); MEAN CORPUSCULAR HGB CONC 29.7 g/dL CAL (32.0-36.0); MONO% 6.4 % (2-13); NEUT# 8.69 thou/uL (1.82-7.42); NEUT% 84.6 % (42-76); RED BLOOD COUNT 3.42 mill/uL (4.70-6.10); RED CELL DISTRI WIDTH 18.4 % (11.5-15.5)
--- NOTE | 2024-04-05 05:47 | NUR ---
PT RESTING NO DISTRESS NOTED AT TIMES FORGETFUL. PT HAS A NAVARRO CATHETER NO KINKS NOTED. CALL LIGHT WITHIN REACH. BED ALARM ON. PLAN OF CARE ONGOING.
[2024-04-05 06:23] LABS: BILIRUBIN, TOTAL 1.3 mg/dL (0.2-1.3); POTASSIUM 5.5 mmol/l (3.5-5.1)
[2024-04-05 06:30] VITALS: BP 145/81
--- NOTE | 2024-04-05 07:20 | NUR ---
PT LAYING IN BED RESTING WITH EYES CLOSED, AROUSES EASILY TO VERBAL STIMULI, PT A&O X3, RESP. EVEN AND UNLABORED, LUNGS SOUNDS CLEAR, ABD DISTENDED AND SOFT WITH ACTIVE BOWEL SOUNDS, NAVARRO CATH IN PLACE DRAINING CLEAR YELLOW URINE, 20G LAC IV WITH FLUIDS INFUSING AT PRESCRIBED RATE, O2 2L VIA NC, SAFETY MEASURES REINFORCED, CALL VELEZ WITHIN REACH
[2024-04-05] MEDS ORDERED: FLUTICASONE/SALMETEROL 250 MCG/50 MCG PER DOSE INH IN SCH (09:00)
[2024-04-05] MEDS ORDERED: TAMSULOSIN HCL 0.4 MG CAP PO SCH (09:00)
[2024-04-05] MEDS ORDERED: LISINOPRIL 10 MG/TAB PO SCH (09:00)
--- NOTE | 2024-04-05 09:26 | NUR ---
BACILLUS SPECIES IN 1/4 BLOOD CULTURES, INFORMED RIKY BARKER, WAIT UNTIL FINAL CULTURES
[2024-04-05 10:32] VITALS: BP 124/68
[2024-04-05] MEDS ORDERED: ALBUTEROL SULFATE 8 GM INH IN PRN (11:00)
--- NOTE | 2024-04-05 12:00 | NUR ---
PT SITTING UP IN THE BED WATCHING TV AND EATING LUNCH, NO S/S OF DISTRESS AT THIS TIME, CALL VELEZ WITHIN REACH
[2024-04-05] MEDS ORDERED: SODIUM CHLORIDE 0.9% 1,000 ML IV PRN (12:15)
--- NOTE | 2024-04-05 12:49 | NUR ---
CLARIFIED WITH DR MANCIA RE: CONSULT WITH PT IS AWARE
[2024-04-05] MEDS ORDERED: IRON SUCROSE COMPLEX 200 MG in SODIUM CHLORIDE 0.9% 100 ML IV SCH (14:30)
[2024-04-05 14:44] VITALS: BP 104/60
[2024-04-05] MEDS ORDERED: SODIUM ZIRCONIUM CYCLOSILICATE 10 GM PAK PO SCH (15:00)
[2024-04-05] MEDS ORDERED: cefTRIAXone SODIUM 2 GM in SODIUM CHLORIDE 0.9% 100 ML IV SCH (16:00)
--- NOTE | 2024-04-05 16:00 | NUR ---
PT ASSISTED FROM THE BED TO THE RECLINER, PT AMBULATED WITH A SLOW UNSTEADY GAIT, PT REMINDED TO CALL FOR ASSISTANCE, CALL VELEZ WITHIN REACH
[2024-04-05] MEDS ORDERED: AZITHROMYCIN 500 MG in SODIUM CHLORIDE 0.9% 250 ML IV SCH (17:00)
[2024-04-05 19:38] VITALS: BP 104/54
--- NOTE | 2024-04-05 19:58 | NUR ---
PT RESTING ON BED IN SUPINE POSITION. ALERT AND ORIENTED X3. RESPS RE EVENA ND UNLABORED. BREATHING IS VERY HEARACLE BUT DENIES ANY SOB. IV FLUIDS NS INFUSING AT 80 MLS/HR VIA [address] R [address]ST. NAVARRO ON PLACE WITHOUT ANY KINKS. PATIENT ON O2 AT 2L VIA NC. LUNGS CLEAR TO AUSCULTATION BILATERALLY. DENIES ANY NEEDS AT THIS TIME. CALL LIGHT IN RECAH AND SAFETY PRECAUTIONS ON PLACE.
--- NOTE | 2024-04-05 21:40 | NUR ---
[place] [facility] [place]
--- NOTE | 2024-04-06 00:01 | NUR ---
PT RESTING ON SUPINE POSITION WITH EYES CLOSED AT THIS TIME. RESPS ARE EVEN AND UNLABORED. 02 VIA NC AT SL/MIN STILL ON PLACE. NO SIGNS OF DISTRESS. CALL LIGHT IN REACH AND SAFETY PRECAUTIONS ON PLACE.
[2024-04-06 00:03] VITALS: BP 101/62
[2024-04-06 03:54] VITALS: BP 119/65
--- NOTE | 2024-04-06 04:00 | NUR ---
PT RESTING IN SUPINE POSITION. NO DISTRESS NOTED WITH 02 VIA NC AT 2L. CALL LIGHT IN REACH AND SAFETY PRECAUTIONS ON PLACE.
[2024-04-06 05:36] LABS: BASO% 0.1 % (0-3); HEMATOCRIT 25.7 % (39.0-50.0); HEMOGLOBIN 7.6 g/dl (14.0-18.0); IMMATURE GRANULOCYTES 0.9 % (0.0-5.0); LYMPH% 3.5 % (15-41); MEAN CELL VOLUME 73.2 fL CALC (80.0-100.0); MEAN CORPUSCULAR HGB 21.7 pG CALC (26.0-32.0); MEAN CORPUSCULAR HGB CONC 29.6 g/dL CAL (32.0-36.0); MONO% 5.7 % (2-13); NEUT# 17.49 thou/uL (1.82-7.42); NEUT% 89.8 % (42-76); RED BLOOD COUNT 3.51 mill/uL (4.70-6.10); RED CELL DISTRI WIDTH 18.1 % (11.5-15.5)
[2024-04-06 06:01] LABS: ALBUMIN 2.2 g/dL (3.2-5.0); BILIRUBIN, TOTAL 0.8 mg/dL (0.2-1.3); CREATININE 1.2 mg/dL (0.7-1.3); MAGNESIUM 2.2 mg/dL (1.6-2.3); POTASSIUM 4.4 mmol/l (3.5-5.1)
[2024-04-06 07:03] VITALS: BP 109/67
--- NOTE | 2024-04-06 07:43 | NUR ---
SHIFT CHANGE REPORT, PT AWAKE ALERT AND ORIENTED RESTING IN SUPINE POSITION IN BED, NO C/O DISCOMFORT, O2 @ 2L VIA NC IN PLACE, TELE MONITOR IN PLACE, IVF INFUSING, CALL BBELL IN REACH AND BED LOCKED IN LOWEST POSITION.
--- NOTE | 2024-04-06 08:00 | NUR ---
patient tried to ambulate down choi with staff, patient got to door, and got shortness of breath. patient had on oxygen at the time. patient turned around, and assited to recliner. nurse notified.
[2024-04-06 09:30] VITALS: BP 111/53
--- NOTE | 2024-04-06 12:00 | NUR ---
ASSISTED BACK TO BED AFTER SITTING UP IN RECLINER OVER AN HOUR, STATES HE IS FEELING A LITTLE BETTER.
[2024-04-06 12:02] LABS: INTERNATIONAL NORMALIZED RATIO 3.8 RATIO (0.7-1.3); PROTHROMBIN TIME 37.3 SECONDS (9.0-12.5)
[2024-04-06 14:46] VITALS: BP 138/70
[2024-04-06 18:36] VITALS: BP 112/64
--- NOTE | 2024-04-06 19:47 | NUR ---
SHIFT CHANGE REPORT. PT RESTING ON SUPIME POSITION. ALERT AND ORIENTED X3, RESPS EVEN AND UNLABORED. WHEEZEZ HEARD ON AUSCULTATION. NAVARRO REMAINS ON PLACE WITH NO KINKS AND SKIN IS INTACT. IVF NS INSFUsING AT 80 CC. HEAT BAGS WERE PLACE UNDER PT'S LEGS TO HELP WITH DISCOMFORT. TELE MONITOR IN PLACE ORDERED. DENIES ANY NEEDS. CALL LIGHT IN REACH AND SAFETY PRECAUTIONS ON PLACE,
[2024-04-07] VITALS (11 sets, daily range): BP systolic 99–158; BP diastolic 48–92
--- NOTE | 2024-04-07 | NUR ---
PT RESTING ON BED IN SUPINE POSITION WITH EYES CLOSED. SHALLOW BREATHING-NO DISTRESS NOTED. TELE MONITOR SHOWING SR WITH [id number] WORKING WELL. INF INFUSING AT 80CC. CALL LIGHT IN REACH. BED IN LOWEST POSITION
--- NOTE | 2024-04-07 04:48 | NUR ---
PT RESTING ON BED. TELE MONITOR WITH LEAD WOORKING WELL. IVF NS INFUSING AT 80 CC/HR. CALL LIGHT IN REACH
[2024-04-07 05:14] LABS: HEMOGLOBIN 7.6 g/dl (14.0-18.0); MEAN CELL VOLUME 73.5 fL CALC (80.0-100.0); MEAN CORPUSCULAR HGB 22.4 pG CALC (26.0-32.0); MEAN CORPUSCULAR HGB CONC 30.4 g/dL CAL (32.0-36.0); RED BLOOD COUNT 3.4 mill/uL (4.70-6.10); RED CELL DISTRI WIDTH 18.6 % (11.5-15.5)
[2024-04-07 05:41] LABS: ALBUMIN 2.3 g/dL (3.2-5.0); BILIRUBIN, TOTAL 0.7 mg/dL (0.2-1.3); CREATININE 0.9 mg/dL (0.7-1.3); POTASSIUM 4.1 mmol/l (3.5-5.1); TOTAL PROTEIN 5.1 g/dL (6.3-8.2)
--- NOTE | 2024-04-07 07:45 | NUR ---
SHIFT CHANGE REPORT, PT SLEEPING IN SUPINE POSITION, BREATHING SHALLOW BUT NON-LABORED, O2 @ 2L VIA NC IN PLACE, TELE MONITOR IN PLACE, NAVARRO CATHETER IN PLACE, CALL VELEZ IN REACH AND BED LOCKED IN LOWEST POSITION.
[2024-04-07 11:03] LABS: INTERNATIONAL NORMALIZED RATIO 1.9 RATIO (0.7-1.3); PROTHROMBIN TIME 19.7 SECONDS (9.0-12.5)
--- NOTE | 2024-04-07 15:38 | NUR ---
TRANSPORTED OFF UNIT VIA W/C AT THIS TIME TO [facility].
[2024-04-07] MEDS ORDERED: FLUCONAZOLE 50 MG TAB PO SCH (17:30)
--- NOTE | 2024-04-07 17:57 | NUR ---
PT JUST COMPLAINED HE FEELS HOT, DIZZY AND JUST NOT FEELING GOOD, VS MEASURED AND WNL, SAID HE NEEDS TO HAVE A BM AND WAS ASSISTED TO BR. WHILW IN BR SAID HE FEELS IS IF HE IS GOING TO PASS OUT, ASSISTED BACK TO BED, BLOOD GLUCOSE MEASURED = 121., TEMP IN ROOM ADJUSTED FOR COOLER TEMP, FAN PLACED, HE STATES HE IS SWEATING BUT THERE IS NO SWEAT. COLD SPONGE BATH GIVEN AND PT STATES HE IS FEELING BETTER, NOW.
--- NOTE | 2024-04-07 20:00 | NUR ---
PT RESTING ON BED. ALERT AND ORIENTED X3. RESPS IS SHALLOW BUT UNLABORED. DENIES ANY SOB OR DISTRESS AT THIS TIME. O2 IN PLACE ORDERED VIA NC. WHEEZES HEARD ON AUCULTATION. TELE MONITOR WITH LEADS INTACT AND WORKING WELL. FOLWWY WITHOUT ANY KINKS WITH CLEAR. GORGE URINE. IVF NS INFUSING VIA RIGHT HAND AT 80 CC/HR. CALL LIGHT IN REACH
[2024-04-07] MEDS ORDERED: APIXABAN BASE 2.5 MG/TAB TAB PO SCH (21:00)
--- NOTE | 2024-04-07 23:15 | NUR ---
PT JUST COMPLAINING OF FEELING HOT AND NOT FEELING OK. VITAL SIGNS WERE CHECKED AT THIS TIME AND ARE NORMAL LIMITS. BLOOD SUGAR CHECKED WELL= 132. ROOM'S TEMP WAS ADJUSTED AND COLD PACKS PROVIDED. PT WAS ASKED IF HE USUALLY DRINKS ALCOHOL AND HE STATED HE QUIT 15 YEARS AGO. WILL CONTINUE TO MONITOR. CALL LIGHT IN REACH
[2024-04-08] VITALS (8 sets, daily range): BP systolic 119–159; BP diastolic 68–81
--- NOTE | 2024-04-08 | NUR ---
PT RESTING ON BED WITH EYES CLOSED AND WITH [address] VIA NC AT 2L/MIN. BREATHING REMAINS SHALLOW BUT UNLABORED. CALL LIGHT IN REACH AND SAFETY PRECAUTIONS ON PLACE.
--- NOTE | 2024-04-08 04:00 | NUR ---
PT RESTING ON BED WITH EYES CLOSED. BREATHING IS EVEN AND UNLABORED. 02 VIA NC AT 2L/MIN. TELE MONITOR WORKING WELL READING [id number]. CALL LIGHT IN REACH
[2024-04-08 05:43] LABS: BASO% 0.1 % (0-3); EOS% 0.1 % (0-8); HEMATOCRIT 28.3 % (39.0-50.0); HEMOGLOBIN 8.4 g/dl (14.0-18.0); LYMPH% 16.2 % (15-41); MEAN CELL VOLUME 76.9 fL CALC (80.0-100.0); MEAN CORPUSCULAR HGB 22.8 pG CALC (26.0-32.0); MEAN CORPUSCULAR HGB CONC 29.7 g/dL CAL (32.0-36.0); MONO% 12.8 % (2-13); NEUT# 10.86 thou/uL (1.82-7.42); NEUT% 68.8 % (42-76); RED BLOOD COUNT 3.68 mill/uL (4.70-6.10); RED CELL DISTRI WIDTH 19.3 % (11.5-15.5)
[2024-04-08 06:03] LABS: ALBUMIN 2.5 g/dL (3.2-5.0); BILIRUBIN, TOTAL 0.8 mg/dL (0.2-1.3); MAGNESIUM 2.4 mg/dL (1.6-2.3); POTASSIUM 4.6 mmol/l (3.5-5.1); TOTAL PROTEIN 5.4 g/dL (6.3-8.2)
--- NOTE | 2024-04-08 07:40 | NUR ---
PT LAYING IN BED RESTING WITH EYES CLOSED, AROUSES EASILY TO VERBAL STIMULI, PT IS A&O X3, PUPILS PERRL, PT IS EXTREMLY HARD OF HEARING, NORMAL S1 S2 HEART SOUNDS, TELE MONITOR IN PLACE, RESP. EVEN AND UNLABORED, PT HAS EXPIRATORY WHEEZES, ABD DISTENDED AND SOFT WITH ACTIVE BOWEL SOUNDS, 20G RW IV WITH NS INFUSING AT PRESCRIBED RATE, SAFETY MEASURES REINFORCED, CALL VELEZ WITHIN REACH
[2024-04-08] MEDS ORDERED: ALPRAZolam 0.25 MG PO PRN (08:00)
[2024-04-08 09:44] LABS: INTERNATIONAL NORMALIZED RATIO 1.8 RATIO (0.7-1.3)
[2024-04-08 09:45] LABS: PROTHROMBIN TIME 19.1 SECONDS (9.0-12.5)
--- NOTE | 2024-04-08 12:00 | NUR ---
PT SITTING UP IN THE RECLINER EATING LUNCH, PT DENIES ANY NEEDS AT THIS TIME, CALL VELEZ WITHIN REACH
[2024-04-08] MEDS ORDERED: IPRATROPIUM-Albuterol 0.5MG-2.5MG/3 ML NEB PRN (14:40)
--- NOTE | 2024-04-08 16:00 | NUR ---
PT ASSISTED BACK TO BED, PT AMBULATES WITH A SLOW UNSTEADY GAIT, PT REMINDED TO CALL FOR ASSISTANCE, CALL VELEZ WITHIN REACH
[2024-04-08] MEDS ORDERED: IPRATROPIUM-Albuterol 0.5MG-2.5MG/3 ML NEB SCH (19:00)
--- NOTE | 2024-04-08 20:00 | NUR ---
PT SITTING UP ON BED. BREATHING IS SHALLOW BUT NOT UNLABORED. NO DISTRESS NOTED. PT REMAINS WITH COUGH BUT NONPRODUCTIVE. LUNGS CLEAR TO AUSCULTATION. O2 ON PLACE VIA NC AT 2L/MIN. TELE MONITOR ON PLACE SHOWING SR WITH PVC-94. NAVARRO ON PLACE WITH GORGE URINE EMTIED WITH 260CC- NO KINKS NOTED. CALL LIGHT IN REACH. DENIES ANY NEEDS AT THIS TIME.
[2024-04-09] VITALS (8 sets, daily range): BP systolic 94–154; BP diastolic 51–91
--- NOTE | 2024-04-09 | NUR ---
PT RESTIMG IN LEFT-SIDED POSITION. O2 NC AT 2LPM. TELE MONITOR WITH LEAD WORKING WELL RUNNING SR WITH PVC-94. CALL LIGHT IN REACH
--- NOTE | 2024-04-09 01:59 | NUR ---
CALL RECEIVED FROM THE ER DUE TO UNSTAINED V-TACH ON PT. EKG ORDERED
--- NOTE | 2024-04-09 04:00 | NUR ---
PT RESTING ON BED WITH EYES CLOSED. BREATHING IS STILL SHALLOW. NO DISTRESS NOTED. CALL LIGHT IN REACH
[2024-04-09 05:54] LABS: BASO% 0.2 % (0-3); HEMATOCRIT 30.1 % (39.0-50.0); HEMOGLOBIN 8.7 g/dl (14.0-18.0); IMMATURE GRANULOCYTES 4.1 % (0.0-5.0); LYMPH% 21.9 % (15-41); MEAN CELL VOLUME 81.1 fL CALC (80.0-100.0); MEAN CORPUSCULAR HGB 23.5 pG CALC (26.0-32.0); MEAN CORPUSCULAR HGB CONC 28.9 g/dL CAL (32.0-36.0); MONO% 13.8 % (2-13); NEUT# 8.4 thou/uL (1.82-7.42); RED BLOOD COUNT 3.71 mill/uL (4.70-6.10); RED CELL DISTRI WIDTH 20.8 % (11.5-15.5)
[2024-04-09 06:12] LABS: ALBUMIN 2.4 g/dL (3.2-5.0); BILIRUBIN, TOTAL 0.9 mg/dL (0.2-1.3); MAGNESIUM 2.2 mg/dL (1.6-2.3); POTASSIUM 4.3 mmol/l (3.5-5.1); TOTAL PROTEIN 5.2 g/dL (6.3-8.2)
--- NOTE | 2024-04-09 07:40 | NUR ---
PT LAYING IN BED RESTING WITH EYES CLOSED, PT AROUSES EASILY TO VERBAL STIMULI, PT A&O X3, PT IS VERY HARD OF HEARING, NORMAL S1 S2 HEART SOUNDS, TELE MONITOR IN PLACE, ABD DISTENDED AND SOFT WITH ACTIVE BOWEL SOUNDS, 20 R FA IV SL, STRONG RADIAL PULSES, WEAK PEDAL PULSES, SAFETY MEASURES REINFORCED, CALL VELEZ WITHIN REACH
[2024-04-09] MEDS ORDERED: FLUCONAZOLE 50 MG TAB PO SCH (09:00)
[2024-04-09 09:15] LABS: INTERNATIONAL NORMALIZED RATIO 1.6 RATIO (0.7-1.3)
[2024-04-09 09:16] LABS: PROTHROMBIN TIME 17.2 SECONDS (9.0-12.5)
--- NOTE | 2024-04-09 09:53 | NUR ---
PT INSTRUCTED ON USE AND FREQUENCY OF I.S., PT PERFORMED PROPER USE X 3 ACHEIVING MAX VOLUME OF 1500 WITH BREATH HOLD, I.S. LEFT AT BEDSIDE
--- NOTE | 2024-04-09 12:00 | NUR ---
PT SITTING UP IN THE RECLINER EATING LUNCH, NO S/S OF DISTRESS, CALL VELEZ WITHIN REACH
[2024-04-09] MEDS ORDERED: CEFEPIME HYDROCHLORIDE 2 GM in SODIUM CHLORIDE 0.9% 100 ML IV SCH (14:00)
--- NOTE | 2024-04-09 16:00 | NUR ---
PT SITTING UP IN THE BED, PT'S O2 PUT BACK ON, PT REMINDED TO NOT TO REMOVE HIS O2, PT VERBALIZED UNDERSTANDING, CALL VELEZ WITHIN REACH
--- NOTE | 2024-04-09 20:30 | NUR ---
REPORT RECEIVED. PT RESTING IN BED IN STABLE CONDITION. A/O X3. ABLE TO MAKE NEEDS KNOWM. SOME C/O OF ABD DISCOMFORT AFTER EATING DINNER. WILL ADMINISTER PEPCID ORDERED FOR TONIGHT. NO S/S OF DISTRESS NOTED. ROOM AIR. ENCOURAGED USE CALL LIGHT FOR ASSISTANCE. CALL LIGHT IN REACH. WILL CONTINUE TO MONITOR.
[2024-04-10] VITALS: BP 110/77
--- NOTE | 2024-04-10 00:45 | NUR ---
PT SITTING UP IN BED. ALERT AND AWAKE. DENIES PAIN/DISCOMFORT. REMAINS ON O2 AT 3L VIA NC. NO DISTRESS NOTED. NAVARRO CATH IN PLACE AND PATENT. IV #20 TO R WRIST SALINE LOCK. TELE # [address] CALL LIGHT WITHIN REACH.
[2024-04-10 01:30] VITALS: BP 110/77
[2024-04-10 04:00] VITALS: BP 134/80
--- NOTE | 2024-04-10 04:00 | NUR ---
PT RESTING IN BED WITH EYES CLOSED. APPEARED SLEEPING COMFORTABLY. NO SIGNS OF DISTRESS/DISCOMFORT NOTED. CALL LIGHT WITHIN REACH.
[2024-04-10 06:16] LABS: HEMATOCRIT 30.9 % (39.0-50.0); HEMOGLOBIN 8.9 g/dl (14.0-18.0); IMMATURE GRANULOCYTES 5.3 % (0.0-5.0); MEAN CELL VOLUME 83.1 fL CALC (80.0-100.0); MEAN CORPUSCULAR HGB 23.9 pG CALC (26.0-32.0); MEAN CORPUSCULAR HGB CONC 28.8 g/dL CAL (32.0-36.0); PLATELET COUNT 133 thou/uL (130-400); RED BLOOD COUNT 3.72 mill/uL (4.70-6.10); RED CELL DISTRI WIDTH 24.2 % (11.5-15.5)
[2024-04-10 06:25] LABS: ALBUMIN 2.3 g/dL (3.2-5.0); BILIRUBIN, TOTAL 1.1 mg/dL (0.2-1.3); MAGNESIUM 2.2 mg/dL (1.6-2.3); POTASSIUM 4.2 mmol/l (3.5-5.1); TOTAL PROTEIN 5.2 g/dL (6.3-8.2)
[2024-04-10 06:41] LABS: MANUAL DIFFERENTIAL YES
[2024-04-10 06:50] LABS: BAND 0 % (0-8); NUCLEATED RED BLOOD CELL 2 /100WBC (0-1)
[2024-04-10 06:51] LABS: PLATELET ESTIMATE NORMAL
[2024-04-10 07:00] VITALS: BP 129/81
--- NOTE | 2024-04-10 07:00 | NUR ---
SHIFT CHANGE REPORT, PT SLEEPING BUT AWAKENS TO VERBAL STIMULI, ORIENTED,, NO C/O DISCOMFORT AT THIS TIME, O2 @ 2L VIA NC IN PLACE, TELE MONITOR IN PLACE, NAVARRO CATHETER IN PLACE WITH YELLOW URINE, CALL VELEZ IN REACH AND BED LOCKED IN LOWEST POSITION.
[2024-04-10] MEDS ORDERED: OMNICEF300 MG PO (09:42)
--- NOTE | 2024-04-10 10:13 | NUR ---
SITTING UP IN RECLINER AT THIS TIME.
[2024-04-10 10:24] VITALS: BP 127/82
--- NOTE | 2024-04-10 11:00 | NUR ---
NAVARRO CATHETER REMOVED @ 1055, MONITORING NOW FOR URINATION
--- NOTE | 2024-04-10 12:55 | NUR ---
Discharge instructions given. Patient verbalizes understanding of same. Discharged in stable condition via Wheelchair to [facility] with *Other. All belongings sent with pt.
--- NOTE | 2024-04-10 13:03 | NUR ---
REPORT GIVEN TO NURSE SAUL @ [facility], PT ENROUTE AT THIS TIME.
== END 2024-04-10 12:49 | DRG 193 ==
LOC: ED 11:23 → ED-I 12:31 → ED 16:49 → MS2 16:50
PROVIDERS: Family Medicine; Nurse Practitioner Family; ADMIT Internal Medicine; ATTEND Internal Medicine
PROC: 0T9B70Z Drainage of Bladder with Drainage Device, Via Natural or Artificial Opening (ICD-10-PCS; principal; 2024-04-04)
DX: J18.9 Pneumonia, unspecified organism (principal); K72.00 Acute and subacute hepatic failure without coma; N17.0 Acute kidney failure with tubular necrosis; E87.1 Hypo-osmolality and hyponatremia; J44.0 Chronic obstructive pulmonary disease with (acute) lower respiratory infection; J44.1 Chronic obstructive pulmonary disease with (acute) exacerbation; E87.20 Acidosis, unspecified; I95.9 Hypotension, unspecified; E86.9 Volume depletion, unspecified; E87.5 Hyperkalemia; T46.4X5A Adverse effect of angiotensin-converting-enzyme inhibitors, initial encounter; I10 Essential (primary) hypertension; E11.9 Type 2 diabetes mellitus without complications; I48.91 Unspecified atrial fibrillation; F10.10 Alcohol abuse, uncomplicated; D64.9 Anemia, unspecified; K70.11 Alcoholic hepatitis with ascites; K70.0 Alcoholic fatty liver; K21.9 Gastro-esophageal reflux disease without esophagitis; F17.200 Nicotine dependence, unspecified, uncomplicated; Z79.01 Long term (current) use of anticoagulants; E83.39 Other disorders of phosphorus metabolism
CPT/HCPCS: J0456; J0612; J0692; J0696; J1756; J2060; Q9967

== ENCOUNTER 2024-04-26 01:16 | Inpatient (IN) | payer MEDICARE, MEDICAID ==
[2024-04-26] VITALS (86 sets, daily range): BP systolic 71–118; BP diastolic 36–86
[~2024-04-26] VITALS: Ht 162.6 cm; Wt 77.6 kg
[~2024-04-26 01:16] MED LIST changes: +TAMSULOSIN0.4 MG PO
[2024-04-26] MEDS ORDERED: LIDOCAINE HCL 2 % JELLY UR ONE (01:25)
[2024-04-26] MEDS ORDERED: dilTIAZem HCL 50 MG/10 ML SDV IV ONE (01:35)
[2024-04-26] MEDS ORDERED: SODIUM CHLORIDE 0.9% 1,000 ML IV ONE ×2 (01:50→03:40)
[2024-04-26 02:13] LABS: BASO% 0.7 % (0-3); EOS% 0.4 % (0-8); HEMATOCRIT 36.6 % (39.0-50.0); HEMOGLOBIN 10.7 g/dl (14.0-18.0); IMMATURE GRANULOCYTES 1.6 % (0.0-5.0); LYMPH% 7.9 % (15-41); MEAN CORPUSCULAR HGB 26.4 pG CALC (26.0-32.0); MEAN CORPUSCULAR HGB CONC 29.2 g/dL CAL (32.0-36.0); MONO% 11.6 % (2-13); NEUT# 7.81 thou/uL (1.82-7.42); NEUT% 77.8 % (42-76); RED BLOOD COUNT 4.06 mill/uL (4.70-6.10); RED CELL DISTRI WIDTH 31.6 % (11.5-15.5)
[2024-04-26 02:18] LABS: MEAN CELL VOLUME 90.1 fL CALC (80.0-100.0)
[2024-04-26 02:24] LABS: BILIRUBIN, TOTAL 1.3 mg/dL (0.2-1.3); CREATININE 1.3 mg/dL (0.7-1.3)
[2024-04-26 02:26] LABS: ALBUMIN 3.1 g/dL (3.2-5.0); POTASSIUM 5.4 mmol/l (3.5-5.1); TOTAL PROTEIN 6.4 g/dL (6.3-8.2)
[2024-04-26] MEDS ORDERED: LABETALOL HCL 20 MG/ 4 ML CARTRG IV ONE (02:55)
[2024-04-26 03:36] LABS: URINE BILIRUBIN - DIPSTICK Negative (NEGATIVE); URINE BLOOD DIPSTICK Moderate (NEGATIVE); URINE COLOR Yellow; URINE GLUCOSE - DIPSTICK Negative (NEGATIVE); URINE KETONE Negative (NEGATIVE); URINE LEUK ESTERASE Negative (NEGATIVE); URINE NITRITE - DIPSTICK Negative (Negative); URINE PH 5.5 (4.5-8.0); URINE PROTEIN - DIPSTICK 30 mg/dL (NEG-TRACE); URINE UROBILINOGEN - DIPSTICK 0.2 E.U./dL (0.2)
[2024-04-26 03:43] LABS: URINE BACTERIA MODERATE hpf; URINE RBC 50-100 RBC/hpf (0-5); URINE WBC 0-2 WBC/hpf (0-5)
[2024-04-26] MEDS ORDERED: DILTIAZEM HCL 125 MG in SODIUM CHLORIDE 0.9% 100 ML IV ONE (04:05)
[2024-04-26] MEDS ORDERED: SODIUM CHLORIDE 0.9% 250 ML IV PRN ×2 (04:30→05:00)
[2024-04-26] MEDS ORDERED: DILTIAZEM HCL 125 MG in SODIUM CHLORIDE 0.9% 100 ML IV PRN (05:00)
[2024-04-26] MEDS ORDERED: CARDIZEM CD120 MG PO (08:29)
[2024-04-26] MEDS ORDERED: IPRATROPIUM-Albuterol 0.5MG-2.5MG/3 ML NEB PRN (08:35)
[2024-04-26] MEDS ORDERED: methylPREDNISolone Sod Succ 40 MG/ML SDV IV SCH (09:00)
[2024-04-26] MEDS ORDERED: dilTIAZem HCl EXTENDED RELEASE 120 MG CAP PO SCH (09:00)
[2024-04-26] MEDS ORDERED: METOPROLOL TARTRATE 25 MG/TAB PO SCH (09:00)
[2024-04-26] MEDS ORDERED: APIXABAN BASE 5 MG TAB PO SCH (09:00)
[2024-04-26] MEDS ORDERED: TAMSULOSIN HCL 0.4 MG CAP PO SCH (09:00)
[2024-04-26] MEDS ORDERED: FUROSEMIDE 40 MG/4 ML SDV IV SCH (09:00)
[2024-04-26] MEDS ORDERED: FAMOTIDINE 20 MG/TAB PO SCH (09:00)
[2024-04-26] MEDS ORDERED: FINASTERIDE 5 MG/TAB PO SCH (09:00)
[2024-04-26] MEDS ORDERED: guaiFENesin-CODEINE 200-20 MG/10 ML UDC PO PRN (19:35)
[2024-04-27] VITALS (73 sets, daily range): BP systolic 57–130; BP diastolic 42–88
[2024-04-27 05:46] LABS: ALBUMIN 2.7 g/dL (3.2-5.0); BILIRUBIN, TOTAL 0.8 mg/dL (0.2-1.3); CREATININE 1.3 mg/dL (0.7-1.3); HEMOGLOBIN 10.3 g/dl (14.0-18.0); MAGNESIUM 2.2 mg/dL (1.6-2.3); MEAN CELL VOLUME 92.3 fL CALC (80.0-100.0); MEAN CORPUSCULAR HGB 27.2 pG CALC (26.0-32.0); MEAN CORPUSCULAR HGB CONC 29.4 g/dL CAL (32.0-36.0); POTASSIUM 4.5 mmol/l (3.5-5.1); RED BLOOD COUNT 3.79 mill/uL (4.70-6.10); RED CELL DISTRI WIDTH 31.3 % (11.5-15.5); TOTAL PROTEIN 5.6 g/dL (6.3-8.2)
[2024-04-27] MEDS ORDERED: DIGOXIN 0.5 MG/2 ML AMP IV SCH (07:00)
[2024-04-27] MEDS ORDERED: ALPRAZolam 0.5 MG/TAB PO PRN (08:45)
[2024-04-27] MEDS ORDERED: amioDARONE HCl 450 MG in SODIUM CHLORIDE 250 ML IV ONE (08:50)
[2024-04-27] MEDS ORDERED: SODIUM CHLORIDE 0.9% 250 ML IV PRN (08:50)
[2024-04-27] MEDS ORDERED: AZITHROMYCIN 250 MG/TAB PO SCH (09:00)
[2024-04-27] MEDS ORDERED: LEVALBUTEROL HCL 1.25 MG/3 ML VIAL NEB PRN (09:20)
[2024-04-27] MEDS ORDERED: ACETAMINOPHEN 325 MG/TAB PO PRN (17:25)
[2024-04-27] MEDS ORDERED: amioDARONE HCl 450 MG in SODIUM CHLORIDE 250 ML IV PRN (18:20)
[2024-04-28] VITALS (78 sets, daily range): BP systolic 70–135; BP diastolic 52–104
[2024-04-28 05:02] LABS: HEMATOCRIT 34.2 % (39.0-50.0); MEAN CELL VOLUME 92.7 fL CALC (80.0-100.0); MEAN CORPUSCULAR HGB 27.1 pG CALC (26.0-32.0); MEAN CORPUSCULAR HGB CONC 29.2 g/dL CAL (32.0-36.0); RED BLOOD COUNT 3.69 mill/uL (4.70-6.10); RED CELL DISTRI WIDTH 31.2 % (11.5-15.5)
[2024-04-28 05:26] LABS: ALBUMIN 2.5 g/dL (3.2-5.0); BILIRUBIN, TOTAL 0.7 mg/dL (0.2-1.3); CREATININE 1.3 mg/dL (0.7-1.3); MAGNESIUM 2.3 mg/dL (1.6-2.3); POTASSIUM 4.8 mmol/l (3.5-5.1); TOTAL PROTEIN 5.4 g/dL (6.3-8.2)
[2024-04-28] MEDS ORDERED: DOXYCYCLINE HYCLATE 100 MG in SODIUM CHLORIDE 0.9% 100 ML IV SCH (09:00)
[2024-04-28] MEDS ORDERED: amioDARONE HCl 150 MG/3 ML SDV IV ONE (09:35)
[2024-04-28] MEDS ORDERED: LEVALBUTEROL HCL 1.25 MG/3 ML VIAL NEB SCH (11:00)
[2024-04-28] MEDS ORDERED: ELIQUIS2.5 MG PO (14:59)
[2024-04-28] MEDS ORDERED: AMIODARONE 200 MG/TAB PO SCH (15:00)
[2024-04-28] MEDS ORDERED: ADVAIR DISK1 INH (15:01)
[2024-04-28] MEDS ORDERED: [UNRECOGNIZED DRUG - SUPPLY] (15:02)
[2024-04-28] MEDS ORDERED: IPRATROPIU0.5 MG/3 M IN (15:02)
[2024-04-28] MEDS ORDERED: FUROSEMIDE 40 MG/4 ML SDV IV SCH (15:30)
[2024-04-28] MEDS ORDERED: METOPROLOL TARTRATE 5 MG/5 ML VIAL IV SCH (18:13)
[2024-04-29] VITALS (27 sets, daily range): BP systolic 88–166; BP diastolic 68–98
[2024-04-29 05:39] LABS: MEAN CELL VOLUME 90.9 fL CALC (80.0-100.0); MEAN CORPUSCULAR HGB 26.7 pG CALC (26.0-32.0); MEAN CORPUSCULAR HGB CONC 29.4 g/dL CAL (32.0-36.0); RED BLOOD COUNT 3.74 mill/uL (4.70-6.10); RED CELL DISTRI WIDTH 30.6 % (11.5-15.5)
[2024-04-29 05:56] LABS: ALBUMIN 2.7 g/dL (3.2-5.0); BILIRUBIN, TOTAL 0.6 mg/dL (0.2-1.3); CREATININE 1.3 mg/dL (0.7-1.3); MAGNESIUM 2.3 mg/dL (1.6-2.3); POTASSIUM 4.4 mmol/l (3.5-5.1); TOTAL PROTEIN 5.5 g/dL (6.3-8.2)
[2024-04-29] MEDS ORDERED: METOPROLOL TARTRATE 25 MG/TAB PO SCH (13:00)
[2024-04-29] MEDS ORDERED: METOPROLOL TARTRATE 50 MG/TAB PO SCH (21:00)
[2024-04-30] VITALS (26 sets, daily range): BP systolic 87–120; BP diastolic 64–102
[2024-04-30] MEDS ORDERED: ALUM & MAG HYDROX-SIMETHICONE 30 ML PO PRN (01:25)
[2024-04-30 05:37] LABS: HEMATOCRIT 35.3 % (39.0-50.0); HEMOGLOBIN 10.3 g/dl (14.0-18.0); MEAN CELL VOLUME 91.9 fL CALC (80.0-100.0); MEAN CORPUSCULAR HGB 26.8 pG CALC (26.0-32.0); MEAN CORPUSCULAR HGB CONC 29.2 g/dL CAL (32.0-36.0); RED BLOOD COUNT 3.84 mill/uL (4.70-6.10); RED CELL DISTRI WIDTH 30.5 % (11.5-15.5)
[2024-04-30 06:01] LABS: ALBUMIN 2.9 g/dL (3.2-5.0); BILIRUBIN, TOTAL 0.7 mg/dL (0.2-1.3); CREATININE 1.1 mg/dL (0.7-1.3); MAGNESIUM 2.4 mg/dL (1.6-2.3); POTASSIUM 4.6 mmol/l (3.5-5.1); TOTAL PROTEIN 5.8 g/dL (6.3-8.2)
[2024-05-01] VITALS (15 sets, daily range): BP systolic 96–124; BP diastolic 66–97
[2024-05-01 07:44] LABS: ALBUMIN 2.8 g/dL (3.2-5.0); BILIRUBIN, TOTAL 0.7 mg/dL (0.2-1.3); CREATININE 1.2 mg/dL (0.7-1.3); MAGNESIUM 2.5 mg/dL (1.6-2.3); POTASSIUM 4.9 mmol/l (3.5-5.1); TOTAL PROTEIN 5.6 g/dL (6.3-8.2)
[2024-05-01] MEDS ORDERED: ELIQUIS5 MG PO (12:52)
[2024-05-01] MEDS ORDERED: LOPRESSOR 550 MG/TAB PO (12:52)
[2024-05-01] MEDS ORDERED: VIBRAMYCIN100 M2 PO (12:53)
[2024-05-01] MEDS ORDERED: PREDNISONE10 MG PO (12:53)
[2024-05-01] MEDS ORDERED: FINASTERIDE5 MG PO (12:53)
[2024-05-01] MEDS ORDERED: LASIX40 MG PO (12:53)
[2024-05-01] MEDS ORDERED: ALPRAZOLAM0.5 M2 PO (12:54)
[2024-05-01] MEDS ORDERED: CORDARONE/200 MG/TAB PO (12:55)
== END 2024-05-01 14:23 | DRG 308 ==
LOC: ED 01:16 → ED-I 02:01 → ED 02:01 → ED-I 04:23 → ED 04:43 → ICU 04:44
PROVIDERS: Family Medicine; ADMIT Internal Medicine; ATTEND Internal Medicine
PROC: 0T9B70Z Drainage of Bladder with Drainage Device, Via Natural or Artificial Opening (ICD-10-PCS; principal; 2024-04-26)
DX: I48.91 Unspecified atrial fibrillation (principal); I50.23 Acute on chronic systolic (congestive) heart failure; J96.21 Acute and chronic respiratory failure with hypoxia; J44.1 Chronic obstructive pulmonary disease with (acute) exacerbation; N39.0 Urinary tract infection, site not specified; R18.8 Other ascites; I95.9 Hypotension, unspecified; I11.0 Hypertensive heart disease with heart failure; E11.9 Type 2 diabetes mellitus without complications; N40.1 Benign prostatic hyperplasia with lower urinary tract symptoms; R33.8 Other retention of urine; R31.9 Hematuria, unspecified; H91.90 Unspecified hearing loss, unspecified ear; K21.9 Gastro-esophageal reflux disease without esophagitis; F41.9 Anxiety disorder, unspecified; B95.7 Other staphylococcus as the cause of diseases classified elsewhere; F17.200 Nicotine dependence, unspecified, uncomplicated; Z79.01 Long term (current) use of anticoagulants
CPT/HCPCS: J0282; J0696; J1160; J1940

== ENCOUNTER 2024-05-25 16:25 | Emergency (ER) | payer MEDICARE, MEDICAID ==
[~2024-05-25] VITALS: Ht 162.6 cm; Wt 86.0 kg
[~2024-05-25 16:25] MED LIST changes: +ADVAIR DISK1 INH; +ALPRAZOLAM0.5 M2 PO; +CARDIZEM CD120 MG PO; +ELIQUIS2.5 MG PO; +LASIX40 MG PO; +LOPRESSOR 550 MG/TAB PO; +PREDNISONE10 MG PO; +VIBRAMYCIN100 M2 PO; +[UNRECOGNIZED DRUG - SUPPLY]
[2024-05-25 17:14] VITALS: BP 111/74
== END 2024-05-25 17:21 | disposition home or self-care (01) ==
LOC: ED 16:25
DX: Z46.6 Encounter for fitting and adjustment of urinary device (principal); I11.0 Hypertensive heart disease with heart failure; I50.9 Heart failure, unspecified; E11.9 Type 2 diabetes mellitus without complications; I48.91 Unspecified atrial fibrillation; H91.90 Unspecified hearing loss, unspecified ear; K21.9 Gastro-esophageal reflux disease without esophagitis; F17.200 Nicotine dependence, unspecified, uncomplicated